=== PATIENT | female | born 1955 | race Caucasian/White ===

== ENCOUNTER 2016-09-22 09:20 | Day surgery (SDC) | payer MEDICAID ==
[2016-04-28 13:41] VITALS: BMI 27.0
[2016-09-22] MEDS ORDERED: Lactated Ringer's 500 ML IV ONE (09:40)
[2016-09-22] MEDS ORDERED: Propofol 10 mg/ml Inj (20 ML) ONE (10:31)
[2016-09-22 10:46] VITALS: RESP 15; TEMP 97
[2016-09-22 11:02] VITALS: BP 105/63; PULSE 63; O2SAT 99
== END 2016-09-22 11:07 | disposition home or self-care (01) ==
LOC: H.ENDO 09:20
PROVIDERS: ATTEND Internal Medicine Gastroenterology
DX: Z12.11 Encounter for screening for malignant neoplasm of colon (principal); K64.8 Other hemorrhoids

== ENCOUNTER 2017-01-19 09:38 | Day surgery (SDC) | payer MEDICAID ==
[2016-04-28 13:41] VITALS: BMI 27.0
[2017-01-19] MEDS ORDERED: Lactated Ringer's 1,000 ML IV ONE (10:09)
[2017-01-19] MEDS ORDERED: Lidocaine 2% MPF (5 ml) Inj ONE (10:32)
[2017-01-19] MEDS ORDERED: Propofol 10 mg/ml Inj (20 ML) ONE (10:32)
[2017-01-19 11:18] VITALS: BP 111/77; PULSE 71; RESP 21; TEMP 97.4; O2SAT 97
== END 2017-01-19 11:18 | disposition home or self-care (01) ==
LOC: H.ENDO 09:38
PROVIDERS: ATTEND Internal Medicine Gastroenterology
DX: Z12.11 Encounter for screening for malignant neoplasm of colon (principal); K64.8 Other hemorrhoids; D12.4 Benign neoplasm of descending colon; K57.30 Diverticulosis of large intestine without perforation or abscess without bleeding
CPT/HCPCS: 45380; 88305; J2704; J7120

== ENCOUNTER 2017-09-17 14:58 | Inpatient (IN) | payer MEDICAID ==
[2017-09-17 14:59] VITALS: BMI 27.0
--- NOTE | 2017-09-17 16:25 | ED PDOC ---
HPI: Abdomen Time Seen by Provider: 09/17/17 15:45 Chief Complaint (Nursing): GI Problem Chief Complaint (Provider): abdominal pain/ diarrhea History Per: Patient History/Exam Limitations: no limitations Onset/Duration Of Symptoms: Days (3) Outside of [place] travel?: No Current Symptoms Are (Timing): Constant Context: Food Severity: Moderate Pain Scale Rating Of: 8 Location Of Pain/Discomfort: Diffuse Quality Of Discomfort: Cramping Associated Symptoms: Fever, Nausea, Vomiting, Diarrhea Exacerbating Factors: Food Alleviating Factors: None Last Bowel Movement: Today Additional History Per: Patient Additional Complaint(s): A 62 yo female with PMH of HTN, arthritis present today due to abdominal pain, diarrhea and vomit for the past 3 days. state the pain is diffuse, 8 out of 10 in severity, constant, radiate to the back, that get exacerbated by food and nothing alleviates it. Pt state that she had been vomiting and having BM 3 times a day and its increasing, she denies any blood in vomit or stool. She also complain of having fever which is alleviated by Tylenol. Pt denies Headache , dizzines, Chest pain, SOB, dysuria, hematuria or polyuria. Primary care doctor Dr. Paulino PMH: HTN, arthritis Abnormal Vaginal Bleeding: No Past Medical History Reviewed: Historical Data, Nursing Documentation, Vital Signs Vital Signs: Last Vital Signs Temp 99.7 F H 09/17/17 15:24 Pulse 103 H 09/17/17 15:24 Resp 20 09/17/17 15:24 BP 130/74 09/17/17 15:24 Pulse Ox 99 09/17/17 18:26 - Medical History PMH: Arthritis, Fractures (right wrist due to fall), Gastritis, HTN, Hypercholesterolemia Denies: HIV, Chronic Kidney Disease - Surgical History Surgical History: No Surg Hx Other surgeries: shockwave lithuthriopsy - Family History Family History: States: No Known Family Hx - Living Arrangements Living Arrangements: With Family - Social History Current smoker - smoking cessation education provided: No Ex-Smoker (has not smoked in the last 12 months): No Alcohol: None - Immunization History Hx Tetanus Toxoid Vaccination: No Hx Influenza Vaccination: No Hx Pneumococcal Vaccination: No - Home Medications Home Medications: Ambulatory Orders Medication Instructions Recorded No Known Home Med 09/22/16 - Allergies Allergies/Adverse Reactions: Allergies Allergy/AdvReac Type Severity Reaction Status Date / Time No Known Allergies Allergy Verified 09/17/17 15:24 Review of Systems ROS Statement: Except As Marked, All Systems Reviewed And Found Negative Constitutional: Positive for: Fever. Negative for: Chills, Sweats, Weakness Eyes: Negative for: Pain, Vision Change Cardiovascular: Negative for: Chest Pain, Palpitations, Edema, Light Headedness Respiratory: Negative for: Cough, Shortness of Breath, SOB with Exertion Gastrointestinal: Positive for: Nausea, Vomiting, Abdominal Pain, Diarrhea Genitourinary Female: Negative for: Dysuria, Frequency, Incontinence Musculoskeletal: Negative for: Neck Pain Skin: Negative for: Rash Neurological: Negative for: Weakness, Confusion Psych: Negative for: Anxiety Physical Exam - Reviewed Nursing Documentation Reviewed: Yes Vital Signs Reviewed: No - Physical Exam Appears: Positive for: Well, Non-toxic, No Acute Distress Head Exam: Positive for: ATRAUMATIC, NORMAL INSPECTION, NORMOCEPHALIC Skin: Positive for: Normal Color, Warm, Dry Eye Exam: Positive for: Normal appearance Neck: Positive for: Normal, Painless ROM Cardiovascular/Chest: Positive for: Regular Rate, Rhythm, Chest Non Tender Respiratory: Positive for: Normal Breath Sounds. Negative for: Crackles, Rales , Rhonchi Gastrointestinal/Abdominal: Positive for: Bowel Sounds, Soft, Tenderness ( bilateral lower quadrant ). 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, Mood/Affect - Laboratory Results Result Diagrams: 09/17/17 17:25 09/17/17 17:25 - ECG O2 Sat by Pulse Oximetry: 99 Medical Decision Making Medical Decision Making: Time 16:00 Initial assessment: Pt is a 62 yo female present with abdominal pain, vomit and diarrhea Plan: Ct scan pelvis/abd BMp CBC PTT prothrombin time Lipase EKG Urinalysis urine dipstick Morphine 2mg IV fluid Odansetron 4mg Po F/u lab and proceed Time 18:[address] in CT scan Lab:WBC: 19.3, neut % 91 lymph 7.1 neut 16.3 Pt 17.2 INR 1.5 K: 3.4 glucose 140 Plan Potassium chloride 20meq time 19:00 Pt seen and re-examined, pt laying down comfortable. Ct: patchy inhomogeneous enhancment of he left kidney with perinephric stranding enhancement left urothelium findings are compatible with ascending urinary tract infection with pyelonephritis blood gas PO2: 26L, VBG PH: 7.42, VBG total CO2 30.6 VBG Base excess 4.0 VBG K : 3.4, Glucose: 120 Plan Urine culture blood culture Initiate ceftriaxone call family support worker, admit to floor. Disposition - Disposition Forms: [employer] (Yoruba)
[2017-09-17] MEDS ORDERED: Sodium Chloride 0.9% 1,000 ML IV STA (17:04)
[2017-09-17 17:28] LABS: BASO # 0.1 K/uL (0.0-0.2); BASO % 0.5 % (0.0-2.0); EOS % 0.1 % (0.0-4.0); HEMOGLOBIN 13.6 g/dL (12.0-16.0); LYMPH # 1.4 K/uL (1.0-4.3); LYMPH % 7.1 % (20.0-40.0); MEAN CELL VOLUME 86.3 fl (81.0-99.0); MEAN CORPUSCULAR HGB CONC 34.8 g/dL (33.0-37.0); MEAN PLATELET VOLUME 9.4 fl (7.2-11.7); MONO # 1.5 K/uL (0.0-0.8); NEUT # 16.3 K/uL (1.8-7.0); NEUT % 84.3 % (50.0-75.0); PLATELET COUNT 133 K/uL (130-400); RBC 4.54 Mil/uL (3.80-5.20); RED CELL DISTRIBUTION WIDTH 13.2 % (11.5-14.5); WHITE BLOOD COUNT 19.3 K/uL (4.8-10.8)
[2017-09-17 17:38] LABS: INR 1.5 (0.9-1.2); PARTIAL THROMBOPLASTIN TIME 29.5 Seconds (25.6-37.1); PROTHROMBIN TIME 17.2 Seconds (9.8-13.1)
[2017-09-17 17:46] LABS: ALB/GLOB RATIO 1.3 (1.0-2.1); ALBUMIN 4.1 g/dL (3.5-5.0); ALT/SGPT 27 U/L (9-52); AST/SGOT 29 U/L (14-36); BLOOD UREA NITROGEN 17 mg/dl (7-17); CALCIUM 8.7 mg/dL (8.4-10.2); GFR AFRICAN-AMERICAN > 60; GFR NON-AFRICAN AMERICAN > 60; LIPASE 99 U/L (23-300)
[2017-09-17] MEDS ORDERED: Sodium Chloride 0.9% 50 ML IV ONE (18:04)
[2017-09-17] MEDS ORDERED: Iohexol 300 100 ML IJ ONE (18:04)
[2017-09-17 18:18] LABS: LYMPHOCYTE 5 % (20-50); MONOCYTE 4 % (0-10); NEUTROPHIL 91 % (42-75); TOTAL CELLS COUNTED 100
[2017-09-17] MEDS ORDERED: Potassium Chloride 20 mEq ER Tab PO STA (18:18)
[2017-09-17 18:19] LABS: PLATELET ESTIMATE NORMAL (NORMAL)
[2017-09-17 18:20] LABS: ANISOCYTOSIS SLIGHT; OVALOCYTES SLIGHT; POIKILOCYTOSIS SLIGHT
[2017-09-17 18:27] LABS: URINE BACTERIA MANY (<OCC); URINE BILIRUBIN NEGATIVE (NEGATIVE); URINE CLARITY TURBID (Clear); URINE COLOR AMBER (YELLOW); URINE GLUCOSE (UA) NEG (Normal); URINE LEUKOCYTE ESTERASE LARGE Leu/uL (Negative); URINE PROTEIN 100 mg/dL (NEGATIVE); URINE UROBILINOGEN 0.2-1.0 mg/dL (0.2-1.0); WBC CLUMPS MOD /hpf
[2017-09-17 18:30] LABS: URINE BLOOD SMALL (NEGATIVE)
--- NOTE | 2017-09-17 18:36 | CT ---
PROCEDURE: CT Abdomen and Pelvis with contrast HISTORY: BLQ pain, v/d COMPARISON: None. TECHNIQUE: Contrast dose: 95 mL Omnipaque 300 Radiation dose: Total exam DLP = 420.7 mGy-cm. This CT exam was performed using one or more of the following dose reduction techniques: Automated exposure control, adjustment of the mA and/or kV according to patient size, and/or use of iterative reconstruction technique. FINDINGS: LOWER THORAX: Unremarkable. LIVER: Hepatic steatosis. No gross lesion or ductal dilatation. GALLBLADDER AND BILE DUCTS: Prior cholecystectomy with surgical clips. PANCREAS: Unremarkable. No gross lesion or ductal dilatation. SPLEEN: Unremarkable. ADRENALS: Unremarkable. No mass. KIDNEYS AND URETERS: Patchy inhomogeneous enhancement of the left kidney with perinephric stranding. Enhancement of the left urothelium. Multiple bilateral renal cysts. No hydronephrosis. No solid mass. VASCULATURE: Unremarkable. No aortic aneurysm. BOWEL: Colonic diverticulosis. No obstruction. No gross mural thickening. APPENDIX: No findings to suggest acute appendicitis. PERITONEUM: Unremarkable. No free fluid. No free air. LYMPH NODES: Unremarkable. No enlarged lymph nodes. BLADDER: Unremarkable. REPRODUCTIVE: 2.4 x 1.8 cm fibroid probably in a submucosal location. BONES: No acute fracture. Degenerative changes. OTHER FINDINGS: None. IMPRESSION: Patchy inhomogeneous enhancement of the left kidney with perinephric stranding enhancement left urothelium findings are compatible with ascending urinary tract infection with pyelonephritis. Additional findings as above.
[2017-09-17 19:36] LABS: VENOUS BLOOD GAS PCO2 45 mmHg (40-60); VENOUS BLOOD GAS PO2 26 mm/Hg (30-55); VENOUS BLOOD PH 7.42 (7.32-7.43)
[2017-09-17] MEDS ORDERED: cefTRIAXone (Rocephin) 1 gm Inj ONE (19:57)
[2017-09-17] MEDS ORDERED: Potassium Chloride 20 mEq ER Tab PO ONE (19:57)
--- NOTE | 2017-09-17 20:31 | CP.PCM.HP ---
History of Present Illness - History of Present Illness History of Present Illness: 62 y/o F with PMHx ofrecent diagnosed HTN presents to ED complaining of lower abdominal pain for 3 days. Patient states that the abdominal pain radiates to her left flank, constant, aching, partially and mild alleviated with tylenol OTC. Also reports subjective fevers, nausea, had one non bloody no bilious vomit yesterday and one today, burning with urination, and 3-4 episodes of non bloody diarrheas since yesterday. First time she has all this symptoms. Denies h /o kidney stones. Also reports a long h/o intermittent acid reflux sensation, sometimes associated with cough at bedtime. Denies chest pain, SOB, dizziness, hematuria, blood in stools. PMD: Dr. Huizar at [facility] PMH: HTN allergies: NKDA Surgical Hx: 1 , 1 inguinal hernia, Cholelithiatis removal via laser Social Hx: Never smoker, social etoh, denies illicit drugs Next of KIn: Nanda Sexton: [phone] Full code ED course: -low grade fever, tachy -PE: alert, awake, oriented x 3, non toxic appearance CV: RRR, normal S1, S2 resp: CTA b/l abd: present BS, soft, mild tender to palpation of lower abdomen, no rebound, no guarding or rigidity back: Left CVA tenderness, right CVA non tender ext: no edema labs and abd CT results reviewed Tx in ER: Morphine 2 mg IV once, zofran 4 mg ODT once, POtassium 20 meq once, ceftriaxone 1 gm Iv, 1L of NS @ 250/hr Present on Admission - Present on Admission Any Indicators Present on Admission: No History of DVT/PE: No History of Uncontrolled Diabetes: No Urinary Catheter: No Decubitus Ulcer Present: No Review of Systems - Review of Systems All systems: reviewed and no additional remarkable complaints except (as per HPI ) Past Patient History - Past Medical History & Family History Past Medical History?: No - Past Social History Alcohol: None - CARDIAC Hx Hypercholesterolemia: Yes Hx Hypertension: Yes - PULMONARY Hx Respiratory Disorders: No - NEUROLOGICAL Hx Neurological Disorder: No Other/Comment: headaches - HEENT Hx HEENT Problems: Yes Hx Cataracts: Yes - RENAL Hx Chronic Kidney Disease: No - ENDOCRINE/METABOLIC Hx Endocrine Disorders: No - HEMATOLOGICAL/ONCOLOGICAL Hx Human Immunodeficiency Virus (HIV): No - INTEGUMENTARY Hx Dermatological Problems: No Other/Comment: red birthmark on right chin - MUSCULOSKELETAL/RHEUMATOLOGICAL Hx Arthritis: Yes Hx Fractures: Yes (right wrist due to fall) - GASTROINTESTINAL Hx Gastritis: Yes - GENITOURINARY/GYNECOLOGICAL Hx Genitourinary Disorders: No - PSYCHIATRIC Hx Psychophysiologic Disorder: No Hx Substance Use: No - SURGICAL HISTORY Hx Cholecystectomy: Yes - ANESTHESIA Hx Anesthesia: Yes Hx Anesthesia Reactions: No Hx Malignant Hyperthermia: No Meds Allergies/Adverse Reactions: Allergies Allergy/AdvReac Type Severity Reaction Status Date / Time No Known Allergies Allergy Verified 09/17/17 15:24 Physical Exam - Constitutional Appears: Non-toxic, No Acute Distress - Head Exam Head Exam: ATRAUMATIC, NORMOCEPHALIC - Eye Exam Eye Exam: Normal appearance, PERRL. absent: Conjunctival injection - ENT Exam ENT Exam: Mucous Membranes Dry - Respiratory Exam Respiratory Exam: Clear to Auscultation Bilateral, NORMAL BREATHING PATTERN. absent: Accessory Muscle Use, Chest Wall Tenderness, Decreased Breath Sounds, Rales, Rhonchi, Wheezes, Respiratory Distress, Stridor - Cardiovascular Exam Cardiovascular Exam: Tachycardia, REGULAR RHYTHM, +S1, +S2 - GI/Abdominal Exam GI & Abdominal Exam: Normal Bowel Sounds, Soft, Tenderness (deep palpation of lower abdomen). absent: Distended, Guarding, Rebound - Extremities Exam Extremities exam: Positive for: normal inspection. Negative for: calf tenderness, pedal edema - Back Exam Back exam: CVA tenderness (L), NORMAL INSPECTION. absent: CVA tenderness (R) - Neurological Exam Neurological exam: Alert, Oriented x3 - Psychiatric Exam Psychiatric exam: Normal Affect, Normal Mood - Skin Skin Exam: Dry, Intact, Normal Color Results - Vital Signs Recent Vital Signs: Last Vital Signs Temp 99.7 F H 09/17/17 15:24 Pulse 103 H 09/17/17 15:24 Resp 20 09/17/17 15:24 BP 130/74 09/17/17 15:24 Pulse Ox 99 09/17/17 19:57 - Labs Result Diagrams: 09/17/17 17:25 09/17/17 17:25 Labs: Laboratory Results - last 24 hr 09/17/17 09/17/17 09/17/17 17:25 17:25 17:25 WBC 19.3 H D RBC 4.54 Hgb 13.6 Hct 39.2 MCV 86.3 MCH 30.0 MCHC 34.8 RDW 13.2 Plt Count 133 MPV 9.4 Neut % (Auto) 84.3 H Lymph % (Auto) 7.1 L Edmunds % (Auto) 8.0 Eos % (Auto) 0.1 Baso % (Auto) 0.5 Neut # (Auto) 16.3 H Lymph # (Auto) 1.4 Edmunds # (Auto) 1.5 H Eos # (Auto) 0.0 Baso # (Auto) 0.1 Neutrophils % (Manual) 91 H Lymphocytes % (Manual) 5 L Monocytes % (Manual) 4 Platelet Estimate Normal Poikilocytosis (manual Slight Anisocytosis (manual) Slight Ovalocytes Slight PT 17.2 H INR 1.5 H APTT 29.5 pO2 VBG pH VBG pCO2 VBG HCO3 VBG Total CO2 VBG O2 Sat (Calc) VBG Base Excess VBG Potassium Glucose Lactate FiO2 Sodium 138 Potassium 3.4 L Chloride 103 Carbon Dioxide 23 Anion Gap 15 BUN 17 Creatinine 0.8 Est GFR ( Amer) > 60 Est GFR (Non-Af Amer) > 60 Random Glucose 140 H Calcium 8.7 Total Bilirubin 1.0 AST 29 ALT 27 Alkaline Phosphatase 70 Total Protein 7.3 Albumin 4.1 Globulin 3.1 Albumin/Globulin Ratio 1.3 Lipase 99 Venous Blood Potassium Urine Color Urine Clarity Urine pH Ur Specific [place] Urine Protein Urine Glucose (UA) Urine Ketones Urine Blood Urine Nitrate Urine Bilirubin Urine Urobilinogen Ur Leukocyte Esterase Urine RBC (Auto) Urine WBC Clumps (Auto) Urine Microscopic WBC Urine Bacteria 09/17/17 09/17/17 17:53 19:30 WBC RBC Hgb Hct MCV MCH MCHC RDW Plt Count MPV Neut % (Auto) Lymph % (Auto) Edmunds % (Auto) Eos % (Auto) Baso % (Auto) Neut # (Auto) Lymph # (Auto) Edmunds # (Auto) Eos # (Auto) Baso # (Auto) Neutrophils % (Manual) Lymphocytes % (Manual) Monocytes % (Manual) Platelet Estimate Poikilocytosis (manual Anisocytosis (manual) Ovalocytes PT INR APTT pO2 26 L VBG pH 7.42 VBG pCO2 45 VBG HCO3 26.7 VBG Total CO2 30.6 H VBG O2 Sat (Calc) 55.3 VBG Base Excess 4.0 H VBG Potassium 3.4 L Glucose 120 H Lactate 1.0 FiO2 21.0 Sodium 135.0 Potassium Chloride 104.0 Carbon Dioxide Anion Gap BUN Creatinine Est GFR ( Amer) Est GFR (Non-Af Amer) Random Glucose Calcium Total Bilirubin AST ALT Alkaline Phosphatase Total Protein Albumin Globulin Albumin/Globulin Ratio Lipase Venous Blood Potassium 3.4 L Urine Color Juliet Urine Clarity Turbid Urine pH 6.0 Ur Specific [place] 1.014 Urine Protein 100 Urine Glucose (UA) Neg Urine Ketones Negative Urine Blood Small Urine Nitrate Negative Urine Bilirubin Negative Urine Urobilinogen 0.2-1.0 Ur Leukocyte Esterase Large Urine RBC (Auto) 12 H Urine WBC Clumps (Auto) Mod H Urine Microscopic WBC 1339 H Urine Bacteria Many H Assessment & Plan - Assessment and Plan (Free Text) Assessment: 62 y/o F with h/o HTN being admitted for acute Left side Pyelonephritis associated with SIRS. Plan: Acute Left Pyelonephritis -MedSurg -C/W IV fluids maintenance -c/w empiric Ceftriaxone 1 GM IV daily -pain control with Toradol PRN based on severity -fever control with Acetaminophen 650 mg PO PRN -leukocytosis 19.3 on admission -UA positive for blood, elevated WBC, large leukocyte esterase -f/u urine Cx -s/p IV fluids in ER -s/p one dose of ceftriaxone 1 gm in ER -s/p morphine for pain control in ER SIRS -most likely associated with acute Pyelo -febrile and tachy on admission -leukocytosis 19.3 -f/u blood Cx -c/w empiric antibiotic -IV fluids -normal lactate on admission -normal coag panel Acid Reflux -most likely 2/2 GERD -start famotidine 20 mg PO -recommended lifestyles modifications HTN -c/w home Hctz 12.5 mg PO -heart healthy diet DVT prophylaxis -SCDs Lovenox 40 mg SC - Date & Time Date: 09/17/17 Time: 20:30
[2017-09-17] MEDS: Lactated Ringer's 1,000 ML IV SCH (22:01)
[2017-09-18] MEDS: Lactated Ringer's 1,000 ML IV SCH ×2 (04:00→16:01)
[2017-09-18 06:48] LABS: BASO # 0.1 K/uL (0.0-0.2); BASO % 0.3 % (0.0-2.0); HEMOGLOBIN 11.9 g/dL (12.0-16.0); LYMPH # 1.2 K/uL (1.0-4.3); LYMPH % 4.9 % (20.0-40.0); MEAN CELL VOLUME 87.1 fl (81.0-99.0); MEAN CORPUSCULAR HEMOGLOBIN 30.4 pg (27.0-31.0); MEAN CORPUSCULAR HGB CONC 34.9 g/dL (33.0-37.0); MEAN PLATELET VOLUME 10.1 fl (7.2-11.7); MONO # 1.4 K/uL (0.0-0.8); MONO % 5.8 % (0.0-10.0); RBC 3.91 Mil/uL (3.80-5.20); RED CELL DISTRIBUTION WIDTH 13.6 % (11.5-14.5)
[2017-09-18 06:55] LABS: BLOOD UREA NITROGEN 17 mg/dl (7-17); CALCIUM 7.9 mg/dL (8.4-10.2); GFR AFRICAN-AMERICAN > 60; GFR NON-AFRICAN AMERICAN 50
[2017-09-18 07:02] LABS: WHITE BLOOD COUNT 23.6 K/uL (4.8-10.8)
[2017-09-18] MEDS: Enoxaparin 40 mg Syringe SC SCH (08:38)
--- NOTE | 2017-09-18 15:02 | CP.PCM.PN ---
Subjective - Date & Time of Evaluation Date of Evaluation: 09/18/17 Time of Evaluation: 15:00 - Subjective Subjective: 62 y/o female w/ pmh of newly diagnosed HTN who was admitted for UTI complicated with pylonephritis. She states that her pain is improved but complains of constipation. Denies nausea, vomiting, difficulty/pain w/ urination. Objective - Vital Signs/Intake and Output Vital Signs (last 24 hours): Temp Pulse Resp BP Pulse Ox 97.4 F L 64 18 103/66 97 09/18/17 08:09 09/18/17 08:09 09/18/17 08:09 09/18/17 08:09 09/18/17 08:09 - Medications Medications: Current Medications Acetaminophen (Tylenol 325mg Tab) 650 mg PO Q6 PRN PRN Reason: Fever >100.4 F Last Admin: 09/17/17 20:46 Dose: 650 mg Enoxaparin Sodium (Lovenox) 40 mg SC DAILY [facility] PRN Reason: Protocol Last Admin: 09/18/17 08:38 Dose: 40 mg Famotidine (Pepcid) 20 mg PO DAILY [facility] Last Admin: 09/18/17 08:39 Dose: 20 mg Hydrochlorothiazide (Microzide) 12.5 mg PO DAILY [facility] Last Admin: 09/18/17 08:39 Dose: 12.5 mg Ceftriaxone Sodium 1 gm/ (Sodium Chloride) 100 mls @ 100 mls/hr IVPB DAILY [facility] PRN Reason: Protocol Last Admin: 09/18/17 08:38 Dose: 100 mls/hr Lactated Ringer's (Lactated Ringer's) 1,000 mls @ 100 mls/hr IV .Q10H [facility] Ketorolac Tromethamine (Toradol) 15 mg IVP Q6 PRN PRN Reason: Pain, moderate (4-7) Ketorolac Tromethamine (Toradol) 30 mg IVP Q6 PRN PRN Reason: Pain, severe (8-10) Ondansetron HCl (Zofran Odt) 4 mg PO Q8H PRN PRN Reason: Nausea/Vomiting Last Admin: 09/17/17 22:00 Dose: 4 mg Sennosides (Senokot Tab) 17.2 mg PO [facility] Stop: 09/20/17 23:59 - Labs Labs: 09/18/17 06:07 09/18/17 06:07 PT 17.2 Seconds (9.8-13.1) H 09/17/17 17:25 INR 1.5 (0.9-1.2) H 09/17/17 17:25 APTT 29.5 Seconds (25.6-37.1) 09/17/17 17:25 - Constitutional Appears: Well, No Acute Distress - ENT Exam ENT Exam: Mucous Membranes Moist - Respiratory Exam Respiratory Exam: Clear to Ausculation Bilateral, NORMAL BREATHING PATTERN - Cardiovascular Exam Cardiovascular Exam: REGULAR RHYTHM, +S1, +S2 - GI/Abdominal Exam GI & Abdominal Exam: Soft, Normal Bowel Sounds. absent: Tenderness - Extremities Exam Extremities Exam: Normal Inspection. absent: Pedal Edema - Neurological Exam Neurological Exam: Alert, Awake, Oriented x3 - Skin Skin Exam: Dry, Intact, Warm Assessment and Plan - Assessment and Plan (Free Text) Assessment: 62 y/o f w/ hx of HTN admitted for acute Left side Pyelonephritis associated with SIRS. Plan: 1. Acute Left Pyelonephritis -Urine culture positive for gram neg. rods -CT of abdomen: patchy inhomogenous enhancement of left kidney w/ perinephric stranding, multiple bilateral cysts. no hydronephrosis. -C/W IV fluids maintenance -c/w empiric Ceftriaxone 1 GM IV daily -pain control with Toradol PRN based on severity -fever control with Acetaminophen 650 mg PO PRN -leukocytosis 19.3 on admission, 23.6 today -UA positive for blood, elevated WBC, large leukocyte esterase 2. SIRS -most likely associated with acute Pyelo -febrile and tachy on admission, temp 97.4 today -leukocytosis WBCs 23.6 -f/u blood Cx pending -c/w empiric antibiotic -IV fluids -normal lactate on admission -normal coag panel 3. Hypokalemia -K+ is 3.4 -on Lactate ringers 4. Acid Reflux -most likely 2/2 GERD -start famotidine 20 mg PO -recommended lifestyles modifications 5. Constipation -likely 2/2 poor dietary intake -ordered Senokot 6. HTN -c/w home Hctz 12.5 mg PO -heart healthy diet 7.DVT prophylaxis -SCDs Lovenox 40 mg SC
[2017-09-19] MEDS: Lactated Ringer's 1,000 ML IV SCH ×4 (00:10→20:51)
[2017-09-19 07:49] LABS: HEMOGLOBIN 11.5 g/dL (12.0-16.0); MEAN CELL VOLUME 87.5 fl (81.0-99.0); MEAN CORPUSCULAR HEMOGLOBIN 30.1 pg (27.0-31.0); MEAN CORPUSCULAR HGB CONC 34.4 g/dL (33.0-37.0); RBC 3.82 Mil/uL (3.80-5.20); RED CELL DISTRIBUTION WIDTH 13.8 % (11.5-14.5); WHITE BLOOD COUNT 13.4 K/uL (4.8-10.8)
[2017-09-19 08:15] LABS: ALBUMIN 3.1 g/dL (3.5-5.0); ALT/SGPT 36 U/L (9-52); AST/SGOT 34 U/L (14-36); BLOOD UREA NITROGEN 10 mg/dl (7-17); CALCIUM 8.3 mg/dL (8.4-10.2); GFR AFRICAN-AMERICAN > 60; GFR NON-AFRICAN AMERICAN > 60
[2017-09-19] MEDS: Enoxaparin 40 mg Syringe SC SCH (09:01)
--- NOTE | 2017-09-19 09:15 | CP.PCM.PN ---
Subjective - Date & Time of Evaluation Date of Evaluation: 09/19/17 Time of Evaluation: 09:15 - Subjective Subjective: pt seen and examined at bedside. No acute events overnight. Reports feeling chill with nausea. OOB/ambulating without issue. No vomiting. Pain improved. No other complaints. Objective - Vital Signs/Intake and Output Vital Signs (last 24 hours): Temp Pulse Resp BP Pulse Ox 97.4 F L 65 20 106/68 97 09/19/17 08:04 09/19/17 08:04 09/19/17 08:04 09/19/17 08:04 09/19/17 08:04 - Medications Medications: Current Medications Acetaminophen (Tylenol 325mg Tab) 650 mg PO Q6 PRN PRN Reason: Fever >100.4 F Last Admin: 09/18/17 22:12 Dose: 650 mg Enoxaparin Sodium (Lovenox) 40 mg SC DAILY [facility] PRN Reason: Protocol Last Admin: 09/19/17 09:01 Dose: 40 mg Famotidine (Pepcid) 20 mg PO DAILY [facility] Last Admin: 09/19/17 09:01 Dose: 20 mg Hydrochlorothiazide (Microzide) 12.5 mg PO DAILY [facility] Last Admin: 09/19/17 09:02 Dose: 12.5 mg Ceftriaxone Sodium 1 gm/ (Sodium Chloride) 100 mls @ 100 mls/hr IVPB DAILY [facility] PRN Reason: Protocol Last Admin: 09/19/17 09:03 Dose: 100 mls/hr Lactated Ringer's (Lactated Ringer's) 1,000 mls @ 100 mls/hr IV .Q10H [facility] Last Admin: 09/19/17 02:30 Dose: 100 mls/hr Ketorolac Tromethamine (Toradol) 15 mg IVP Q6 PRN PRN Reason: Pain, moderate (4-7) Ketorolac Tromethamine (Toradol) 30 mg IVP Q6 PRN PRN Reason: Pain, severe (8-10) Ondansetron HCl (Zofran Odt) 4 mg PO Q8H PRN PRN Reason: Nausea/Vomiting Last Admin: 09/17/17 22:00 Dose: 4 mg Sennosides (Senokot Tab) 17.2 mg PO [facility] Stop: 09/20/17 23:59 Last Admin: 09/18/17 22:06 Dose: Not Given - Labs Labs: 09/19/17 05:30 09/19/17 05:30 PT 17.2 Seconds (9.8-13.1) H 09/17/17 17:25 INR 1.5 (0.9-1.2) H 09/17/17 17:25 APTT 29.5 Seconds (25.6-37.1) 09/17/17 17:25 - Constitutional Appears: Non-toxic, No Acute Distress - Head Exam Head Exam: ATRAUMATIC, NORMOCEPHALIC - Eye Exam Eye Exam: EOMI Pupil Exam: PERRL - ENT Exam ENT Exam: Mucous Membranes Moist - Neck Exam Neck Exam: Full ROM - Respiratory Exam Respiratory Exam: Clear to Ausculation Bilateral, NORMAL BREATHING PATTERN. absent: Rales, Rhonchi, Wheezes - Cardiovascular Exam Cardiovascular Exam: REGULAR RHYTHM, RRR, +S1, +S2. absent: JVD, Rubs - GI/Abdominal Exam GI & Abdominal Exam: Soft, Normal Bowel Sounds. absent: Tenderness - Extremities Exam Extremities Exam: Normal Inspection. absent: Pedal Edema - Back Exam Back Exam: absent: CVA tenderness (L), CVA tenderness (R) - Neurological Exam Neurological Exam: Alert, Awake, Oriented x3 Assessment and Plan - Assessment and Plan (Free Text) Assessment: 62 y/o female with PMHx of new diagnosed HTN admitted for acute Left side Pyelonephritis. Plan: 1) Acute Left Pyelonephritis -Urine culture positive for gram neg. rods -blood culture positive: gram neg rods -CT of abdomen: patchy inhomogenous enhancement of left kidney w/ perinephric stranding, multiple bilateral cysts. no hydronephrosis. -C/W IV fluids maintenance -s/p Rocephin, switched to Meropenem as per ID -pain control with Toradol PRN based on severity -fever control with Acetaminophen 650 mg PO PRN -UA positive for blood, elevated WBC, large leukocyte esterase 2) Bactermia 2/2 to Pyelonephritis -most likely associated with acute Pyelo -leukocytosis: 13.4 today -f/u blood Cx pending -c/w empiric antibiotic -IV fluids -normal lactate on admission -normal coag panel 3) Hypokalemia -K+ is 3.0 -LR fluid hydration -KCL 40mEq PO, K-runs x2 -follow up AM labs 4) GERD -stable -start famotidine 20 mg PO -recommended lifestyles modifications 5) Constipation -likely 2/2 poor dietary intake -ordered Senokot 6) HTN -c/w home Hctz 12.5 mg PO -heart healthy diet 7) DVT prophylaxis -SCDs -Lovenox 40 mg SC 8) Code Status -full code
[2017-09-19] MEDS ORDERED: Potassium Chloride 20 mEq/15 ml LIQ UD PO ONE (10:42)
--- NOTE | 2017-09-19 10:51 | CP.PCM.CON ---
History of Present Illness - History of Present Illness History of Present Illness: Infectious Disease Consultation Note- asked to see this patient for bacteremia and UTI. HPI- Patient is a 62 year old female with OMH of HTN who states she came to ED with c /o fever and nause and vomiting along with lower abdominal discomfort with radiation to left flank for 2 days and she decided to come to ED for further evaluation and treatment. She also states she had dysurea for 1 day . she states she feels better since admission and her dysurea and flank pain have resolved. she state she still has slight nausea but much less than before. She denies any h/o UTI in the past. pt. has been found to have e.coli UTI and bacteremia long with pyelonephritis . pt. states her symptoms are improving. PMD: Dr. Huizar at [facility] PMH: HTN allergies: NKDA Surgical Hx: 1 , 1 inguinal hernia, Cholelithiatis removal via laser Social Hx: Never smoker, social etoh, denies illicit drugs Review of Systems - Review of Systems Review of Systems: ROS- had fever and chills but not now, had nausea and vomiting, now only mild nausea , denies any cough or sob, denies any chest pain, had lower abd pain and flank pian but that has resolved, had dysurea but states has resolved, denies any diarrhea Past Patient History - Past Medical History & Family History Past Medical History?: Yes - Past Social History Smoking Status: Never Smoked Alcohol: None Drugs: Denies Home Situation {Lives}: With Family - CARDIAC Hx Cardiac Disorders: Yes Hx Hypercholesterolemia: Yes Hx Hypertension: Yes - PULMONARY Hx Respiratory Disorders: No - NEUROLOGICAL Hx Neurological Disorder: Yes Other/Comment: headaches - HEENT Hx HEENT Problems: Yes Hx Cataracts: Yes - RENAL Hx Chronic Kidney Disease: No - ENDOCRINE/METABOLIC Hx Endocrine Disorders: No - HEMATOLOGICAL/ONCOLOGICAL Hx Blood Disorders: No - INTEGUMENTARY Hx Dermatological Problems: Yes Other/Comment: red birthmark on right chin - MUSCULOSKELETAL/RHEUMATOLOGICAL Hx Musculoskeletal Disorders: Yes Hx Arthritis: Yes Hx Falls: Yes Hx Fractures: Yes (right wrist due to fall) - GASTROINTESTINAL Hx Gastrointestinal Disorders: Yes Hx Gastritis: Yes - GENITOURINARY/GYNECOLOGICAL Hx Genitourinary Disorders: No - PSYCHIATRIC Hx Psychophysiologic Disorder: No Hx Substance Use: No - SURGICAL HISTORY Hx Surgeries: Yes Hx Cholecystectomy: Yes - ANESTHESIA Hx Anesthesia: Yes Hx Anesthesia Reactions: No Hx Malignant Hyperthermia: No Has any member of the family had a problem w/ anesthesia?: No Meds Allergies/Adverse Reactions: Allergies Allergy/AdvReac Type Severity Reaction Status Date / Time No Known Allergies Allergy Verified 09/17/17 15:24 - Medications Medications: Current Medications Acetaminophen (Tylenol 325mg Tab) 650 mg PO Q6 PRN PRN Reason: Fever >100.4 F Last Admin: 09/19/17 09:47 Dose: 650 mg Enoxaparin Sodium (Lovenox) 40 mg SC DAILY [facility] PRN Reason: Protocol Last Admin: 09/19/17 09:01 Dose: 40 mg Famotidine (Pepcid) 20 mg PO DAILY [facility] Last Admin: 09/19/17 09:01 Dose: 20 mg Hydrochlorothiazide (Microzide) 12.5 mg PO DAILY [facility] Last Admin: 09/19/17 09:02 Dose: 12.5 mg Ceftriaxone Sodium 1 gm/ (Sodium Chloride) 100 mls @ 100 mls/hr IVPB DAILY [facility] PRN Reason: Protocol Last Admin: 09/19/17 09:03 Dose: 100 mls/hr Lactated Ringer's (Lactated Ringer's) 1,000 mls @ 100 mls/hr IV .Q10H [facility] Last Admin: 09/19/17 02:30 Dose: 100 mls/hr Potassium Chloride (Potassium Chloride 10 Meq/100 Ml) 100 mls @ 100 mls/hr IVPB Q1 [facility] Stop: 09/19/17 12:59 Ketorolac Tromethamine (Toradol) 15 mg IVP Q6 PRN PRN Reason: Pain, moderate (4-7) Ketorolac Tromethamine (Toradol) 30 mg IVP Q6 PRN PRN Reason: Pain, severe (8-10) Ondansetron HCl (Zofran Odt) 4 mg PO Q8H PRN PRN Reason: Nausea/Vomiting Last Admin: 09/17/17 22:00 Dose: 4 mg Sennosides (Senokot Tab) 17.2 mg PO HS [facility] Stop: 09/20/17 23:59 Last Admin: 09/18/17 22:06 Dose: Not Given Physical Exam - Constitutional Appears: No Acute Distress - Head Exam Head Exam: ATRAUMATIC - Eye Exam Eye Exam: EOMI - ENT Exam ENT Exam: Normal Oropharynx - Neck Exam Neck exam: Positive for: Full Rom - Respiratory Exam Respiratory Exam: Clear to Auscultation Bilateral, NORMAL BREATHING PATTERN - Cardiovascular Exam Cardiovascular Exam: RRR, +S1, +S2 - GI/Abdominal Exam GI & Abdominal Exam: Normal Bowel Sounds, Soft Additional comments: NT, ND No CVA tenderness b/l - Extremities Exam Extremities exam: Positive for: normal inspection - Neurological Exam Neurological exam: Alert, Oriented x3 Results - Vital Signs Recent Vital Signs: Last Vital Signs Temp 97.4 F L 09/19/17 08:04 Pulse 65 09/19/17 08:04 Resp 20 09/19/17 08:04 BP 106/68 09/19/17 08:04 Pulse Ox 97 09/19/17 08:04 - Labs Result Diagrams: 09/20/17 05:20 09/20/17 05:20 Labs: Laboratory Results - last 24 hr 09/19/17 09/19/17 05:30 05:30 WBC 13.4 H RBC 3.82 Hgb 11.5 L Hct 33.4 L MCV 87.5 MCH 30.1 MCHC 34.4 RDW 13.8 Plt Count 116 L Sodium 137 Potassium 3.0 L Chloride 99 Carbon Dioxide 30 Anion Gap 11 BUN 10 Creatinine 0.8 Est GFR ( Amer) > 60 Est GFR (Non-Af Amer) > 60 Random Glucose 99 Calcium 8.3 L Total Bilirubin 0.6 AST 34 ALT 36 Alkaline Phosphatase 70 Total Protein 6.0 L Albumin 3.1 L D Globulin 2.9 Albumin/Globulin Ratio 1.0 Laboratory Results - last 72 hr 09/17/17 09/17/17 09/17/17 17:25 17:25 17:25 WBC 19.3 H D RBC 4.54 Hgb 13.6 Hct 39.2 MCV 86.3 MCH 30.0 MCHC 34.8 RDW 13.2 Plt Count 133 MPV 9.4 Neut % (Auto) 84.3 H Lymph % (Auto) 7.1 L Whitman % (Auto) 8.0 Eos % (Auto) 0.1 Baso % (Auto) 0.5 Neut # (Auto) 16.3 H Lymph # (Auto) 1.4 Whitman # (Auto) 1.5 H Eos # (Auto) 0.0 Baso # (Auto) 0.1 Neutrophils % (Manual) 91 H Lymphocytes % (Manual) 5 L Monocytes % (Manual) 4 Platelet Estimate Normal Poikilocytosis (manual Slight Anisocytosis (manual) Slight Ovalocytes Slight PT 17.2 H INR 1.5 H APTT 29.5 pO2 VBG pH VBG pCO2 VBG HCO3 VBG Total CO2 VBG O2 Sat (Calc) VBG Base Excess VBG Potassium Glucose Lactate FiO2 Sodium 138 Potassium 3.4 L Chloride 103 Carbon Dioxide 23 Anion Gap 15 BUN 17 Creatinine 0.8 Est GFR ( Amer) > 60 Est GFR (Non-Af Amer) > 60 Random Glucose 140 H Calcium 8.7 Total Bilirubin 1.0 AST 29 ALT 27 Alkaline Phosphatase 70 Total Protein 7.3 Albumin 4.1 Globulin 3.1 Albumin/Globulin Ratio 1.3 Lipase 99 Venous Blood Potassium Urine Color Urine Clarity Urine pH Ur Specific [place] Urine Protein Urine Glucose (UA) Urine Ketones Urine Blood Urine Nitrate Urine Bilirubin Urine Urobilinogen Ur Leukocyte Esterase Urine RBC (Auto) Urine WBC Clumps (Auto) Urine Microscopic WBC Urine Bacteria 09/17/17 09/17/17 09/18/17 17:53 19:30 06:07 WBC 23.6 H RBC 3.91 Hgb 11.9 L Hct 34.0 MCV 87.1 MCH 30.4 MCHC 34.9 RDW 13.6 Plt Count 99 L D MPV 10.1 Neut % (Auto) 89.0 H Lymph % (Auto) 4.9 L Whitman % (Auto) 5.8 Eos % (Auto) 0.0 Baso % (Auto) 0.3 Neut # (Auto) 21.0 H Lymph # (Auto) 1.2 Whitman # (Auto) 1.4 H Eos # (Auto) 0.0 Baso # (Auto) 0.1 Neutrophils % (Manual) Lymphocytes % (Manual) Monocytes % (Manual) Platelet Estimate Poikilocytosis (manual Anisocytosis (manual) Ovalocytes PT INR APTT pO2 26 L VBG pH 7.42 VBG pCO2 45 VBG HCO3 26.7 VBG Total CO2 30.6 H VBG O2 Sat (Calc) 55.3 VBG Base Excess 4.0 H VBG Potassium 3.4 L Glucose 120 H Lactate 1.0 FiO2 21.0 Sodium 135.0 Potassium Chloride 104.0 Carbon Dioxide Anion Gap BUN Creatinine Est GFR ( Amer) Est GFR (Non-Af Amer) Random Glucose Calcium Total Bilirubin AST ALT Alkaline Phosphatase Total Protein Albumin Globulin Albumin/Globulin Ratio Lipase Venous Blood Potassium 3.4 L Urine Color [place] Urine Clarity Turbid Urine pH 6.0 Ur Specific [place] 1.014 Urine Protein 100 Urine Glucose (UA) Neg Urine Ketones Negative Urine Blood Small Urine Nitrate Negative Urine Bilirubin Negative Urine Urobilinogen 0.2-1.0 Ur Leukocyte Esterase Large Urine RBC (Auto) 12 H Urine WBC Clumps (Auto) Mod H Urine Microscopic WBC 1339 H Urine Bacteria Many H 09/18/17 09/19/17 09/19/17 06:07 05:30 05:30 WBC 13.4 H RBC 3.82 Hgb 11.5 L Hct 33.4 L MCV 87.5 MCH 30.1 MCHC 34.4 RDW 13.8 Plt Count 116 L MPV Neut % (Auto) Lymph % (Auto) Whitman % (Auto) Eos % (Auto) Baso % (Auto) Neut # (Auto) Lymph # (Auto) Whitman # (Auto) Eos # (Auto) Baso # (Auto) Neutrophils % (Manual) Lymphocytes % (Manual) Monocytes % (Manual) Platelet Estimate Poikilocytosis (manual Anisocytosis (manual) Ovalocytes PT INR APTT pO2 VBG pH VBG pCO2 VBG HCO3 VBG Total CO2 VBG O2 Sat (Calc) VBG Base Excess VBG Potassium Glucose Lactate FiO2 Sodium 138 137 Potassium 3.5 L 3.0 L Chloride 105 99 Carbon Dioxide 24 30 Anion Gap 13 11 BUN 17 10 Creatinine 1.1 0.8 Est GFR ( Amer) > 60 > 60 Est GFR (Non-Af Amer) 50 > 60 Random Glucose 126 H 99 Calcium 7.9 L 8.3 L Total Bilirubin 0.6 AST 34 ALT 36 Alkaline Phosphatase 70 Total Protein 6.0 L Albumin 3.1 L D Globulin 2.9 Albumin/Globulin Ratio 1.0 Lipase Venous Blood Potassium Urine Color Urine Clarity Urine pH Ur Specific [place] Urine Protein Urine Glucose (UA) Urine Ketones Urine Blood Urine Nitrate Urine Bilirubin Urine Urobilinogen Ur Leukocyte Esterase Urine RBC (Auto) Urine WBC Clumps (Auto) Urine Microscopic WBC Urine Bacteria 09/20/17 09/20/17 05:20 05:20 WBC 9.0 RBC 3.99 Hgb 12.0 Hct 34.5 MCV 86.6 MCH 30.2 MCHC 34.8 RDW 13.6 Plt Count 114 L MPV Neut % (Auto) Lymph % (Auto) Whitman % (Auto) Eos % (Auto) Baso % (Auto) Neut # (Auto) Lymph # (Auto) Whitman # (Auto) Eos # (Auto) Baso # (Auto) Neutrophils % (Manual) Lymphocytes % (Manual) Monocytes % (Manual) Platelet Estimate Poikilocytosis (manual Anisocytosis (manual) Ovalocytes PT INR APTT pO2 VBG pH VBG pCO2 VBG HCO3 VBG Total CO2 VBG O2 Sat (Calc) VBG Base Excess VBG Potassium Glucose Lactate FiO2 Sodium 136 Potassium 3.4 L Chloride 98 Carbon Dioxide 26 Anion Gap 15 BUN 7 Creatinine 0.6 L Est GFR ( Amer) > 60 Est GFR (Non-Af Amer) > 60 Random Glucose 109 H Calcium 8.4 Total Bilirubin 0.6 AST 51 H D ALT 49 Alkaline Phosphatase 86 Total Protein 6.5 Albumin 3.5 Globulin 3.0 Albumin/Globulin Ratio 1.2 Lipase Venous Blood Potassium Urine Color Urine Clarity Urine pH Ur Specific [place] Urine Protein Urine Glucose (UA) Urine Ketones Urine Blood Urine Nitrate Urine Bilirubin Urine Urobilinogen Ur Leukocyte Esterase Urine RBC (Auto) Urine WBC Clumps (Auto) Urine Microscopic WBC Urine Bacteria Microbiology 09/19/17 12:04 Blood Blood Culture - Preliminary NO GROWTH AFTER 24 HOURS 09/19/17 11:54 Blood Blood Culture - Preliminary NO GROWTH AFTER 24 HOURS 09/17/17 00:29 Blood Blood Culture - Final Escherichia Coli 09/17/17 00:29 Blood Gram Stain - Final 09/17/17 00:29 Blood Blood Culture - Final Escherichia Coli 09/17/17 00:29 Blood Gram Stain - Final 09/17/17 18:08 Urine Urine Culture - Final Escherichia Coli Accession No. : [id number] Patient Name / ID : MARILEE MOORE / [id number] Exam Date : 09/17/2017 18:13:53 ( Approved ) Study Comment : Sex / Age : F / 62Y Creator : Benjamín Medrano MD Dictator : Benjamín Medrano MD Dependency Director : Library Customer Service Clerk : Benjamín Medrano MD Approver2 : Report Date : 09/17/2017 18:34:06 My Comment : PROCEDURE: CT Abdomen and Pelvis with contrast HISTORY: BLQ pain, v/d COMPARISON: None. TECHNIQUE: Contrast dose: 95 mL Omnipaque 300 Radiation dose: Total exam DLP = 420.7 mGy-cm. This CT exam was performed using one or more of the following dose reduction techniques: Automated exposure control, adjustment of the mA and/or kV according to patient size, and/or use of iterative reconstruction technique. FINDINGS: LOWER THORAX: Unremarkable. LIVER: Hepatic steatosis. No gross lesion or ductal dilatation. GALLBLADDER AND BILE DUCTS: Prior cholecystectomy with surgical clips. PANCREAS: Unremarkable. No gross lesion or ductal dilatation. SPLEEN: Unremarkable. ADRENALS: Unremarkable. No mass. KIDNEYS AND URETERS: Patchy inhomogeneous enhancement of the left kidney with perinephric stranding. Enhancement of the left urothelium. Multiple bilateral renal cysts. No hydronephrosis. No solid mass. VASCULATURE: Unremarkable. No aortic aneurysm. BOWEL: Colonic diverticulosis. No obstruction. No gross mural thickening. APPENDIX: No findings to suggest acute appendicitis. PERITONEUM: Unremarkable. No free fluid. No free air. LYMPH NODES: Unremarkable. No enlarged lymph nodes. BLADDER: Unremarkable. REPRODUCTIVE: 2.4 x 1.8 cm fibroid probably in a submucosal location. BONES: No acute fracture. Degenerative changes. OTHER FINDINGS: None. IMPRESSION: Patchy inhomogeneous enhancement of the left kidney with perinephric stranding enhancement left urothelium findings are compatible with ascending urinary tract infection with pyelonephritis. Additional findings as above. Assessment & Plan (1) UTI (urinary tract infection) Status: Acute (2) Bacteremia due to Escherichia coli Status: Acute (3) Pyelonephritis due to Escherichia coli Status: Acute - Assessment and Plan (Free Text) Assessment: A/P- 62 year old female with e.coli UTI/pyelonephtitis and e.coli bacteremia. clinically ahs improved. afebrile normal wbc count urien cx on admission- E.COli not ESBL blood cx from admission x 2- E.coli not ESBL repeat blood cx 09/19/2017- neg x 2 so far PLan- advise to continue with IV meropenem for e.coli bacteremi and UTI. day #1 today. check TTE r/o vegetations. check 2 more blood cx. will need total of 14 days of IV antibiotics for GNR bacteremia. All above d/w patient and her questions were answered and she verbalizes full understanding of all above and agrees with above plan of care. Thank you for allowing me to take part in the care of this patient.
[2017-09-19] MEDS ORDERED: Potassium CL 10mEq/100ml 100 ML IVPB SCH (11:00)
[2017-09-19] MEDS ORDERED: Meropenem 1 GM in Sodium Chloride 0.9% 100 ML IVPB SCH (11:00)
[2017-09-19] MEDS ORDERED: Potassium Chloride 20 mEq 100 ML IV SCH (16:00)
[2017-09-19] MEDS: Meropenem 1 GM in Sodium Chloride 0.9% 100 ML IVPB SCH (20:59)
[2017-09-20] MEDS: Lactated Ringer's 1,000 ML IV SCH ×2 (01:21→06:42)
[2017-09-20] MEDS: Meropenem 1 GM in Sodium Chloride 0.9% 100 ML IVPB SCH ×3 (04:49→21:29)
[2017-09-20 06:29] LABS: MEAN CELL VOLUME 86.6 fl (81.0-99.0); MEAN CORPUSCULAR HEMOGLOBIN 30.2 pg (27.0-31.0); MEAN CORPUSCULAR HGB CONC 34.8 g/dL (33.0-37.0); RBC 3.99 Mil/uL (3.80-5.20); RED CELL DISTRIBUTION WIDTH 13.6 % (11.5-14.5)
[2017-09-20 07:05] LABS: ALB/GLOB RATIO 1.2 (1.0-2.1); ALBUMIN 3.5 g/dL (3.5-5.0); ALT/SGPT 49 U/L (9-52); AST/SGOT 51 U/L (14-36); BLOOD UREA NITROGEN 7 mg/dl (7-17); CALCIUM 8.4 mg/dL (8.4-10.2); GFR AFRICAN-AMERICAN > 60; GFR NON-AFRICAN AMERICAN > 60
[2017-09-20] MEDS ORDERED: Potassium Chloride 20 mEq/15 ml LIQ UD PO ONE (07:08)
[2017-09-20] MEDS: Enoxaparin 40 mg Syringe SC SCH (08:38)
--- NOTE | 2017-09-20 10:24 | CARD ---
APPROVED REPORT EKG Measurement Heart [id number] <Conclusion> Normal sinus rhythm Moderate voltage criteria for LVH, may be normal variant Nonspecific ST and T wave abnormality Abnormal ECG
--- NOTE | 2017-09-20 12:52 | CP.PCM.PN ---
Subjective - Date & Time of Evaluation Date of Evaluation: 09/20/17 Time of Evaluation: 12:50 - Subjective Subjective: 62 y/o female w/ pmh of newly diagnosed HTN who was admitted for UTI complicated with pylonephritis. Seen and examined at bedside. She states that her pain is improved, c/o non- bloody diarrhea since last night. No acute events over night. Objective - Vital Signs/Intake and Output Vital Signs (last 24 hours): Temp Pulse Resp BP Pulse Ox 99.4 F 81 20 120/73 96 09/20/17 07:52 09/20/17 07:52 09/20/17 07:52 09/20/17 07:52 09/20/17 07:52 - Medications Medications: Current Medications Acetaminophen (Tylenol 325mg Tab) 650 mg PO Q6 PRN PRN Reason: Fever >100.4 F Last Admin: 09/20/17 04:54 Dose: 650 mg Enoxaparin Sodium (Lovenox) 40 mg SC DAILY [facility] PRN Reason: Protocol Last Admin: 09/20/17 08:38 Dose: 40 mg Famotidine (Pepcid) 20 mg PO DAILY [facility] Last Admin: 09/20/17 08:39 Dose: 20 mg Hydrochlorothiazide (Microzide) 12.5 mg PO DAILY [facility] Last Admin: 09/20/17 08:38 Dose: 12.5 mg Meropenem 1 gm/ Sodium (Chloride) 100 mls @ 100 mls/hr IVPB Q8@0500,1300,2100 [facility] PRN Reason: Protocol Last Admin: 09/20/17 04:49 Dose: 100 mls/hr Lactated Ringer's (Lactated Ringer's) 1,000 mls @ 75 mls/hr IV .[id number] [facility] Ketorolac Tromethamine (Toradol) 15 mg IVP Q6 PRN PRN Reason: Pain, moderate (4-7) Ketorolac Tromethamine (Toradol) 30 mg IVP Q6 PRN PRN Reason: Pain, severe (8-10) Ondansetron HCl (Zofran Odt) 4 mg PO Q8H PRN PRN Reason: Nausea/Vomiting Last Admin: 09/20/17 04:55 Dose: 4 mg - Labs Labs: 09/20/17 05:20 09/20/17 05:20 PT 17.2 Seconds (9.8-13.1) H 09/17/17 17:25 INR 1.5 (0.9-1.2) H 09/17/17 17:25 APTT 29.5 Seconds (25.6-37.1) 09/17/17 17:25 - Constitutional Appears: Well, No Acute Distress - ENT Exam ENT Exam: Mucous Membranes Moist - Respiratory Exam Respiratory Exam: Clear to Ausculation Bilateral, NORMAL BREATHING PATTERN - Cardiovascular Exam Cardiovascular Exam: REGULAR RHYTHM, +S1, +S2 - GI/Abdominal Exam GI & Abdominal Exam: Soft, Normal Bowel Sounds. absent: Tenderness - Extremities Exam Extremities Exam: Normal Inspection. absent: Pedal Edema - Neurological Exam Neurological Exam: Alert, Awake, Oriented x3 - Skin Skin Exam: Dry, Intact, Warm Assessment and Plan - Assessment and Plan (Free Text) Assessment: 62 y/o female with PMHx of new diagnosed HTN admitted for acute Left side Pyelonephritis. Plan: 1) Acute Left Pyelonephritis -Urine culture positive for E. coli -blood culture positive 09/17/17 E. coli -CT of abdomen: patchy inhomogenous enhancement of left kidney w/ perinephric stranding, multiple bilateral cysts. no hydronephrosis. -C/W IV fluids maintenance -s/p Rocephin, switched to Meropenem as per ID -pain control with Toradol PRN based on severity -fever control with Acetaminophen 650 mg PO PRN -UA positive for blood, elevated WBC, large leukocyte esterase 2) Bactermia 2/2 to Pyelonephritis -most likely associated with acute Pyelo -leukocytosis improving, 9.0 today -f/u blood Cx 09/19 shows no growth -Echo pending -c/w empiric antibiotic -IV fluids -normal lactate on admission -normal coag panel 3) Hypokalemia -K+ is 3.4 -KCL 40mEq PO, K-runs x2 -follow up AM labs 4) GERD -stable -start famotidine 20 mg PO -recommended lifestyles modifications 5) Constipation -likely 2/2 poor dietary intake -now diarrhea likely 2/2 Senokot -stopped Senokot 6) HTN -c/w home Hctz 12.5 mg PO -heart healthy diet 7) DVT prophylaxis -SCDs -Lovenox 40 mg SC 8) Code Status -full code
[2017-09-21] MEDS: Meropenem 1 GM in Sodium Chloride 0.9% 100 ML IVPB SCH ×3 (04:30→20:57)
[2017-09-21] MEDS: Lactated Ringer's 1,000 ML IV SCH ×3 (04:33→21:00)
[2017-09-21 06:54] LABS: ALBUMIN 3.4 g/dL (3.5-5.0); ALT/SGPT 57 U/L (9-52); AST/SGOT 46 U/L (14-36); BLOOD UREA NITROGEN 12 mg/dl (7-17); CALCIUM 8.7 mg/dL (8.4-10.2); GFR AFRICAN-AMERICAN > 60; GFR NON-AFRICAN AMERICAN > 60
[2017-09-21] MEDS: Enoxaparin 40 mg Syringe SC SCH (08:07)
--- NOTE | 2017-09-21 10:20 | CP.PCM.PN ---
Subjective - Date & Time of Evaluation Date of Evaluation: 09/21/17 Time of Evaluation: 10:20 - Subjective Subjective: 62 y/o female w/ pmh of newly diagnosed HTN who was admitted for UTI complicated with pylonephritis. Seen and examined at bedside. Pain is improved. Diarrhea resolved. No acute events over night. Objective - Vital Signs/Intake and Output Vital Signs (last 24 hours): Temp Pulse Resp BP Pulse Ox 98.3 F 79 18 120/81 98 09/21/17 08:03 09/21/17 08:03 09/21/17 08:03 09/21/17 08:03 09/21/17 08:03 - Medications Medications: Current Medications Acetaminophen (Tylenol 325mg Tab) 650 mg PO Q6 PRN PRN Reason: Fever >100.4 F Last Admin: 09/21/17 02:46 Dose: 650 mg Enoxaparin Sodium (Lovenox) 40 mg SC DAILY [facility] PRN Reason: Protocol Last Admin: 09/21/17 08:07 Dose: 40 mg Famotidine (Pepcid) 20 mg PO DAILY [facility] Last Admin: 09/21/17 08:08 Dose: 20 mg Hydrochlorothiazide (Microzide) 12.5 mg PO DAILY [facility] Last Admin: 09/21/17 08:08 Dose: 12.5 mg Meropenem 1 gm/ Sodium (Chloride) 100 mls @ 100 mls/hr IVPB Q8@0500,1300,2100 [facility] PRN Reason: Protocol Last Admin: 09/21/17 04:30 Dose: 100 mls/hr Lactated Ringer's (Lactated Ringer's) 1,000 mls @ 75 mls/hr IV .[id number] [facility] Last Admin: 09/21/17 04:33 Dose: 75 mls/hr Ketorolac Tromethamine (Toradol) 15 mg IVP Q6 PRN PRN Reason: Pain, moderate (4-7) Ketorolac Tromethamine (Toradol) 30 mg IVP Q6 PRN PRN Reason: Pain, severe (8-10) Ondansetron HCl (Zofran Odt) 4 mg PO Q8H PRN PRN Reason: Nausea/Vomiting Last Admin: 09/20/17 04:55 Dose: 4 mg - Labs Labs: 09/20/17 05:20 09/21/17 05:25 PT 17.2 Seconds (9.8-13.1) H 09/17/17 17:25 INR 1.5 (0.9-1.2) H 09/17/17 17:25 APTT 29.5 Seconds (25.6-37.1) 09/17/17 17:25 - Constitutional Appears: Well, No Acute Distress - ENT Exam ENT Exam: Mucous Membranes Moist - Respiratory Exam Respiratory Exam: Clear to Ausculation Bilateral, NORMAL BREATHING PATTERN - Cardiovascular Exam Cardiovascular Exam: REGULAR RHYTHM, +S1, +S2 - GI/Abdominal Exam GI & Abdominal Exam: Soft, Normal Bowel Sounds. absent: Tenderness - Extremities Exam Extremities Exam: Normal Inspection. absent: Pedal Edema, Tenderness - Neurological Exam Neurological Exam: Alert, Awake, Oriented x3 - Skin Skin Exam: Dry, Intact, Warm Assessment and Plan - Assessment and Plan (Free Text) Assessment: 62 y/o female with PMHx of new diagnosed HTN admitted for acute Left side Pyelonephritis. Plan: 1) Acute Left Pyelonephritis -Urine culture positive for E. coli -blood culture positive 09/17/17 E. coli, repeat is pending -CT of abdomen: patchy inhomogenous enhancement of left kidney w/ perinephric stranding, multiple bilateral cysts. no hydronephrosis. -C/W IV fluids maintenance -s/p Rocephin, switched to Meropenem x 14 days as per ID -pain control with Toradol PRN based on severity -fever control with Acetaminophen 650 mg PO PRN -UA positive for blood, elevated WBC, large leukocyte esterase 2) Bactermia 2/2 to Pyelonephritis -most likely associated with acute Pyelo -f/u blood cx pending -Echo report pending -c/w empiric antibiotic -IV fluids -normal lactate on admission -normal coag panel 3) Hypokalemia -K 4.4 today -replaced -follow up AM labs 4) GERD -stable -start famotidine 20 mg PO -recommended lifestyles modifications 5) Constipation -likely 2/2 poor dietary intake -now diarrhea likely 2/2 Senokot, resolved today -stopped Senokot 6) HTN -c/w home Hctz 12.5 mg PO -heart healthy diet 7) DVT prophylaxis -SCDs -Lovenox 40 mg SC 8) Code Status -full code
--- NOTE | 2017-09-21 10:34 | CP.PCM.PN ---
Subjective - Date & Time of Evaluation Date of Evaluation: 09/21/17 Time of Evaluation: 10:33 - Subjective Subjective: Id note- Pt. seen and examined today . pt. states she feels better today and denies any lower abd pain and denies any dysurea. Objective - Vital Signs/Intake and Output Vital Signs (last 24 hours): Temp Pulse Resp BP Pulse Ox 98.3 F 79 18 120/81 98 09/21/17 08:03 09/21/17 08:03 09/21/17 08:03 09/21/17 08:03 09/21/17 08:03 - Medications Medications: Current Medications Acetaminophen (Tylenol 325mg Tab) 650 mg PO Q6 PRN PRN Reason: Fever >100.4 F Last Admin: 09/21/17 02:46 Dose: 650 mg Enoxaparin Sodium (Lovenox) 40 mg SC DAILY [facility] PRN Reason: Protocol Last Admin: 09/21/17 08:07 Dose: 40 mg Famotidine (Pepcid) 20 mg PO DAILY [facility] Last Admin: 09/21/17 08:08 Dose: 20 mg Hydrochlorothiazide (Microzide) 12.5 mg PO DAILY [facility] Last Admin: 09/21/17 08:08 Dose: 12.5 mg Meropenem 1 gm/ Sodium (Chloride) 100 mls @ 100 mls/hr IVPB Q8@0500,1300,2100 [facility] PRN Reason: Protocol Last Admin: 09/21/17 04:30 Dose: 100 mls/hr Lactated Ringer's (Lactated Ringer's) 1,000 mls @ 75 mls/hr IV .[id number] [facility] Last Admin: 09/21/17 04:33 Dose: 75 mls/hr Ketorolac Tromethamine (Toradol) 15 mg IVP Q6 PRN PRN Reason: Pain, moderate (4-7) Ketorolac Tromethamine (Toradol) 30 mg IVP Q6 PRN PRN Reason: Pain, severe (8-10) Ondansetron HCl (Zofran Odt) 4 mg PO Q8H PRN PRN Reason: Nausea/Vomiting Last Admin: 09/20/17 04:55 Dose: 4 mg - Labs Labs: - Additional Findings Additional findings: - Constitutional Appears: No Acute Distress - Head Exam Head Exam: ATRAUMATIC - Eye Exam Eye Exam: EOMI - ENT Exam ENT Exam: Normal Oropharynx - Neck Exam Neck exam: Positive for: Full Rom - Respiratory Exam Respiratory Exam: Clear to Auscultation Bilateral, NORMAL BREATHING PATTERN - Cardiovascular Exam Cardiovascular Exam: RRR, +S1, +S2 - GI/Abdominal Exam GI & Abdominal Exam: Normal Bowel Sounds, Soft Additional comments: NT, ND No CVA tenderness b/l - Extremities Exam Extremities exam: Positive for: normal inspection - Neurological Exam Neurological exam: Alert, Oriented x 3 Laboratory Results - last 72 hr 09/19/17 09/19/17 09/20/17 05:30 05:30 05:20 WBC 13.4 H 9.0 RBC 3.82 3.99 Hgb 11.5 L 12.0 Hct 33.4 L 34.5 MCV 87.5 86.6 MCH 30.1 30.2 MCHC 34.4 34.8 RDW 13.8 13.6 Plt Count 116 L 114 L Sodium 137 Potassium 3.0 L Chloride 99 Carbon Dioxide 30 Anion Gap 11 BUN 10 Creatinine 0.8 Est GFR ( Amer) > 60 Est GFR (Non-Af Amer) > 60 Random Glucose 99 Calcium 8.3 L Total Bilirubin 0.6 AST 34 ALT 36 Alkaline Phosphatase 70 Total Protein 6.0 L Albumin 3.1 L D Globulin 2.9 Albumin/Globulin Ratio 1.0 09/20/17 09/21/17 05:20 05:25 WBC RBC Hgb Hct MCV MCH MCHC RDW Plt Count Sodium 136 139 Potassium 3.4 L 4.4 Chloride 98 99 Carbon Dioxide 26 29 Anion Gap 15 15 BUN 7 12 Creatinine 0.6 L 0.8 Est GFR ( Amer) > 60 > 60 Est GFR (Non-Af Amer) > 60 > 60 Random Glucose 109 H 101 Calcium 8.4 8.7 Total Bilirubin 0.6 0.5 AST 51 H D 46 H ALT 49 57 H Alkaline Phosphatase 86 87 Total Protein 6.5 6.8 Albumin 3.5 3.4 L Globulin 3.0 3.4 Albumin/Globulin Ratio 1.2 1.0 Microbiology 09/19/17 12:04 Blood Blood Culture - Preliminary NO GROWTH AFTER 48 HOURS 09/19/17 11:54 Blood Blood Culture - Preliminary NO GROWTH AFTER 48 HOURS 09/17/17 00:29 Blood Blood Culture - Final Escherichia Coli 09/17/17 00:29 Blood Gram Stain - Final 09/17/17 00:29 Blood Blood Culture - Final Escherichia Coli 09/17/17 00:29 Blood Gram Stain - Final 09/17/17 18:08 Urine Urine Culture - Final Escherichia Coli Assessment and Plan (1) UTI (urinary tract infection) Status: Acute (2) Bacteremia due to Escherichia coli Status: Acute (3) Pyelonephritis due to Escherichia coli Status: Acute - Assessment and Plan (Free Text) Assessment: A/P- 62 year old female with e.coli UTI/pyelonephtitis and e.coli bacteremia. clinically much improved. afebrile normal wbc count urien cx on admission- E.COli not ESBL blood cx from admission x 2- E.coli not ESBL repeat blood cx 09/19/2017- neg x 2 so far TTE- report pending PLan- advise to continue with IV meropenem for e.coli bacteremi and UTI. day #3. today. f/u TTE report. check 2 more blood cx. will need total of 14 days of IV antibiotics for e.coli bacteremia. will ask lab to check sensitivity for ceftriaxone so that we could de-escalate the IV abx if e.coli is sensitive to this. All above d/w patient and her questions were answered and she verbalizes full understanding of all above and agrees with above plan of care.
--- NOTE | 2017-09-21 14:50 | PQF ---
PROVIDER RESPONSE TEXT: Pt has bacteremia with sepsis REVIEWER QUERY TEXT: Bacteremia Underlying Cause E. Coli Bacteremia is documented in the Medical Record. 1) Please clarify if this is Bacteremia With or Without Sepsis. The patient's Clinical Indicators include: Admitted with abdominal pain radiating to the L flank, fever, nausea, vomiting and burning on urinati on. WBC 19.3-> 23.6-> 13.4 L shift, lactate 1.0, glucose 140, 126, UA: turbid, blood, leukocytes, bacteri a URINE CS: E Coli, BLOOD CS: E Coli TEMP: 99.7, 100.6 x 2, 105.6, 102, 102.1, 97.9, 103.5 HR: 103, 94, 116, 106, 94, 91, 106, 102, 65, 82, 84 BP: 130/74, 163/60, 154/78, 124/70, 110/68. 153/83 R 20, 16, 18, 17 Treatment, IVF, Rocephin --> Merrem. Query created by: Edwige Sherman on 09/21/2017 2:08 PM Electronically signed by: Ruby Briggs MD 09/21/2017 2:47 PM
[2017-09-22] MEDS: Meropenem 1 GM in Sodium Chloride 0.9% 100 ML IVPB SCH (05:53)
[2017-09-22 07:11] LABS: BLOOD UREA NITROGEN 13 mg/dl (7-17); GFR AFRICAN-AMERICAN > 60; GFR NON-AFRICAN AMERICAN > 60
[2017-09-22 08:16] VITALS: O2SAT 97
[2017-09-22] MEDS: Enoxaparin 40 mg Syringe SC SCH (08:20)
[2017-09-22 10:47] VITALS: BP 147/84; PULSE 84; RESP 18; TEMP 98.4
[2017-09-22] MEDS ORDERED: Lidocaine 1% Inj (20ml) ONE (11:04)
--- NOTE | 2017-09-22 11:19 | PCM.SURG1 ---
Surgeon's Initial Post Op Note - Surgeon's Notes Surgeon: Toby Allen MD Correctional Corporal: NONE Type of Anesthesia: Local Pre-Operative Diagnosis: UTI Operative Findings: US showed a patent right basilic vein Post-Operative Diagnosis: UTI Operation Performed: Single lumen picc placement right basilic vein, 33 CM. Tip is in the the SVC. Specimen/Specimens Removed: NONE Estimated Blood Loss: EBL {In ML}: 2 Blood Products Given: N/A Drains Used: No Drains Post-Op Condition: Fair Date of Surgery/Procedure: 09/22/17 Time of Surgery/Procedure: 11:15
--- NOTE | 2017-09-22 11:24 | CP.PCM.PN ---
Subjective - Date & Time of Evaluation Date of Evaluation: 09/22/17 Time of Evaluation: 11:23 - Subjective Subjective: ID note- Pt. seen and examined today. Pt. denies any complaints today and states she feels much better. s/p picc line placement. Objective - Vital Signs/Intake and Output Vital Signs (last 24 hours): Temp Pulse Resp BP Pulse Ox 98.4 F 84 18 147/84 97 09/22/17 10:46 09/22/17 10:46 09/22/17 10:46 09/22/17 10:46 09/22/17 08:15 - Medications Medications: Current Medications Acetaminophen (Tylenol 325mg Tab) 650 mg PO Q6 PRN PRN Reason: Fever >100.4 F Last Admin: 09/21/17 02:46 Dose: 650 mg Enoxaparin Sodium (Lovenox) 40 mg SC DAILY [facility] PRN Reason: Protocol Last Admin: 09/22/17 08:20 Dose: Not Given Famotidine (Pepcid) 20 mg PO DAILY [facility] Last Admin: 09/22/17 08:21 Dose: 20 mg Hydrochlorothiazide (Microzide) 12.5 mg PO DAILY [facility] Last Admin: 09/22/17 08:21 Dose: 12.5 mg Meropenem 1 gm/ Sodium (Chloride) 100 mls @ 100 mls/hr IVPB Q8@0500,1300,2100 [facility] PRN Reason: Protocol Last Admin: 09/22/17 05:53 Dose: 100 mls/hr Lactated Ringer's (Lactated Ringer's) 1,000 mls @ 75 mls/hr IV .[id number] [facility] Last Admin: 09/21/17 21:00 Dose: 75 mls/hr Ketorolac Tromethamine (Toradol) 15 mg IVP Q6 PRN PRN Reason: Pain, moderate (4-7) Ketorolac Tromethamine (Toradol) 30 mg IVP Q6 PRN PRN Reason: Pain, severe (8-10) Ondansetron HCl (Zofran Odt) 4 mg PO Q8H PRN PRN Reason: Nausea/Vomiting Last Admin: 09/20/17 04:55 Dose: 4 mg - Labs Labs: - Additional Findings Additional findings: - Constitutional Appears: No Acute Distress - Head Exam Head Exam: ATRAUMATIC - Eye Exam Eye Exam: EOMI - ENT Exam ENT Exam: Normal Oropharynx - Neck Exam Neck exam: Positive for: Full Rom - Respiratory Exam Respiratory Exam: Clear to Auscultation Bilateral, NORMAL BREATHING PATTERN - Cardiovascular Exam Cardiovascular Exam: RRR, +S1, +S2 - GI/Abdominal Exam GI & Abdominal Exam: Normal Bowel Sounds, Soft Additional comments: NT, ND No CVA tenderness b/l - Extremities Exam Extremities exam: Positive for: normal inspection - Neurological Exam Neurological exam: Alert, Oriented x 3 Laboratory Results - last 72 hr 09/20/17 09/20/17 09/21/17 05:20 05:20 05:25 WBC 9.0 RBC 3.99 Hgb 12.0 Hct 34.5 MCV 86.6 MCH 30.2 MCHC 34.8 RDW 13.6 Plt Count 114 L Sodium 136 139 Potassium 3.4 L 4.4 Chloride 98 99 Carbon Dioxide 26 29 Anion Gap 15 15 BUN 7 12 Creatinine 0.6 L 0.8 Est GFR ( Amer) > 60 > 60 Est GFR (Non-Af Amer) > 60 > 60 Random Glucose 109 H 101 Calcium 8.4 8.7 Total Bilirubin 0.6 0.5 AST 51 H D 46 H ALT 49 57 H Alkaline Phosphatase 86 87 Total Protein 6.5 6.8 Albumin 3.5 3.4 L Globulin 3.0 3.4 Albumin/Globulin Ratio 1.2 1.0 09/22/17 05:25 WBC RBC Hgb Hct MCV MCH MCHC RDW Plt Count Sodium 138 Potassium 4.1 Chloride 101 Carbon Dioxide 27 Anion Gap 14 BUN 13 Creatinine 0.7 Est GFR ( Amer) > 60 Est GFR (Non-Af Amer) > 60 Random Glucose 90 Calcium 9.0 Total Bilirubin AST ALT Alkaline Phosphatase Total Protein Albumin Globulin Albumin/Globulin Ratio Microbiology 09/19/17 12:04 Blood Blood Culture - Preliminary NO GROWTH AFTER 3 DAYS 09/19/17 11:54 Blood Blood Culture - Preliminary NO GROWTH AFTER 3 DAYS 09/17/17 00:29 Blood Blood Culture - Final Escherichia Coli 09/17/17 00:29 Blood Gram Stain - Final 09/17/17 00:29 Blood Blood Culture - Final Escherichia Coli 09/17/17 00:29 Blood Gram Stain - Final 09/17/17 18:08 Urine Urine Culture - Final Escherichia Coli Assessment and Plan (1) UTI (urinary tract infection) Status: Acute (2) Bacteremia due to Escherichia coli Status: Acute (3) Pyelonephritis due to Escherichia coli Status: Acute - Assessment and Plan (Free Text) Assessment: A/P- 62 year old female with e.coli UTI/pyelonephtitis and e.coli bacteremia. clinically much improved. afebrile normal wbc count urine cx on admission- E.COli not ESBL blood cx from admission x 2- E.coli not ESBL sens to ceftriaxone was checked by micro and added repeat blood cx 09/19/2017- neg x 2 so far TTE- report pending PLan- completed 4 days of IV meropenem for e.coli bacteremia. will de-escalate to ceftriaxone 2 gram IV daily since the bacteria is sens to this antibiotic as well and it's daily dosing. will need total of 14 days of IV antibiotics for e.coli bacteremia.(10 more days ) pt. to also have 2 more blood cx done as outpatient at the completion of her abx therapy. All above d/w patient and her questions were answered and she verbalizes full understanding of all above and agrees with above plan of care. All above d/w Dr.Pierre Monzon.
[2017-09-22] MEDS ORDERED: cefTRIAXone 2 GM in Sodium Chloride 0.9% 100 ML IVPB SCH (11:30)
--- NOTE | 2017-09-22 12:21 | VASCULAR ---
PROCEDURE: Date of procedure: 09/22/2017 Procedure: 1. Placement of a right arm PICC with ultrasound and fluoroscopic guidance, CPT 19296 2. PICC tip confirmation with spot radiograph and is in the superior vena cava Medications: 1 percent lidocaine Total Fluoro time: 2.9 seconds Radiation: 0.33 MGy EBL: 2 cc HISTORY: Infection requiring long-term IV antibiotics TECHNIQUE: Following informed consent and procedure time-out, the patient was placed supine on the interventional table and the right arm prepped and draped in the usual sterile fashion. Ultrasound showed a patent and compressible right basilic vein. After the skin was anesthetized with lidocaine, the basilic vein was accessed with micro micropuncture technique using ultrasound guidance. A guidewire was then advanced under fluoroscopic guidance into the superior vena cava. An image documenting ultrasound guidance for vascular access was permanently saved. The length of the single-lumen 4 [place] PICC was trimmed to 33 centimeters and advanced through a peel-away sheath. The PICC was position with tip of PICC confirm a spot radiograph the superior vena cava. The PICC was secured to the patient's skin. The PICC was flushed. A biopatch and sterile dressing was applied. IMPRESSION: Placement of a single-lumen 4 [place] PICC trimmed to 33 centimeters via right basilic vein. The tip of the PICC is confirmed with spot radiograph and is in the superior vena cava.
--- NOTE | 2017-09-22 13:27 | CP.PCM.DIS ---
Provider - Provider Date of Admission: 09/17/17 19:37 Attending physician: Ruby Briggs MD Time Spent in preparation of Discharge (in minutes): 35 Diagnosis - Discharge Diagnosis (1) Bacteremia due to Escherichia coli Status: Acute (2) Pyelonephritis due to Escherichia coli Status: Acute (3) UTI (urinary tract infection) Status: Acute Hospital Course - Lab Results Lab Results: Micro Results 09/19/17 12:04 Blood Blood Culture - Preliminary NO GROWTH AFTER 3 DAYS 09/19/17 11:54 Blood Blood Culture - Preliminary NO GROWTH AFTER 3 DAYS 09/17/17 00:29 Blood Blood Culture - Final Escherichia Coli 09/17/17 00:29 Blood Gram Stain - Final 09/17/17 00:29 Blood Blood Culture - Final Escherichia Coli 09/17/17 00:29 Blood Gram Stain - Final 09/17/17 18:08 Urine Urine Culture - Final Escherichia Coli Most Recent Lab Values WBC 9.0 K/uL (4.8-10.8) 09/20/17 05:20 RBC 3.99 Mil/uL (3.80-5.20) 09/20/17 05:20 Hgb 12.0 g/dL (12.0-16.0) 09/20/17 05:20 Hct 34.5 % (34.0-47.0) 09/20/17 05:20 MCV 86.6 fl (81.0-99.0) 09/20/17 05:20 MCH 30.2 pg (27.0-31.0) 09/20/17 05:20 MCHC 34.8 g/dL (33.0-37.0) 09/20/17 05:20 RDW 13.6 % (11.5-14.5) 09/20/17 05:20 Plt Count 114 K/uL (130-400) L 09/20/17 05:20 MPV 10.1 fl (7.2-11.7) 09/18/17 06:07 Neut % (Auto) 89.0 % (50.0-75.0) H 09/18/17 06:07 Lymph % (Auto) 4.9 % (20.0-40.0) L 09/18/17 06:07 [place] % (Auto) 5.8 % (0.0-10.0) 09/18/17 06:07 Eos % (Auto) 0.0 % (0.0-4.0) 09/18/17 06:07 Baso % (Auto) 0.3 % (0.0-2.0) 09/18/17 06:07 Neut # (Auto) 21.0 K/uL (1.8-7.0) H 09/18/17 06:07 Lymph # (Auto) 1.2 K/uL (1.0-4.3) 09/18/17 06:07 [place] # (Auto) 1.4 K/uL (0.0-0.8) H 09/18/17 06:07 Eos # (Auto) 0.0 K/uL (0.0-0.7) 09/18/17 06:07 Baso # (Auto) 0.1 K/uL (0.0-0.2) 09/18/17 06:07 Neutrophils % (Manual) 91 % (42-75) H 09/17/17 17:25 Lymphocytes % (Manual) 5 % (20-50) L 09/17/17 17:25 Monocytes % (Manual) 4 % (0-10) 09/17/17 17:25 Platelet Estimate Normal (NORMAL) 09/17/17 17:25 Poikilocytosis (manual Slight 09/17/17 17:25 Anisocytosis (manual) Slight 09/17/17 17:25 Ovalocytes Slight 09/17/17 17:25 PT 17.2 Seconds (9.8-13.1) H 09/17/17 17:25 INR 1.5 (0.9-1.2) H 09/17/17 17:25 APTT 29.5 Seconds (25.6-37.1) 09/17/17 17:25 pO2 26 mm/Hg (30-55) L 09/17/17 19:30 VBG pH 7.42 (7.32-7.43) 09/17/17 19:30 VBG pCO2 45 mmHg (40-60) 09/17/17 19:30 VBG HCO3 26.7 mmol/L 09/17/17 19:30 VBG Total CO2 30.6 mmol/L (22-28) H 09/17/17 19:30 VBG O2 Sat (Calc) 55.3 % (40-65) 09/17/17 19:30 VBG Base Excess 4.0 mmol/L (0.0-2.0) H 09/17/17 19:30 VBG Potassium 3.4 mmol/L (3.6-5.2) L 09/17/17 19:30 Sodium 135.0 mmol/L (132-148) 09/17/17 19:30 Chloride 104.0 mmol/L (98-107) 09/17/17 19:30 Glucose 120 mg/dL (65-105) H 09/17/17 19:30 Lactate 1.0 mmol/L (0.7-2.1) 09/17/17 19:30 FiO2 21.0 % 09/17/17 19:30 Sodium 138 mmol/l (132-148) 09/22/17 05:25 Potassium 4.1 MMOL/L (3.6-5.0) 09/22/17 05:25 Chloride 101 mmol/L (98-107) 09/22/17 05:25 Carbon Dioxide 27 mmol/L (22-30) 09/22/17 05:25 Anion Gap 14 (10-20) 09/22/17 05:25 BUN 13 mg/dl (7-17) 09/22/17 05:25 Creatinine 0.7 mg/dl (0.7-1.2) 09/22/17 05:25 Est GFR ( Amer) > 60 09/22/17 05:25 Est GFR (Non-Af Amer) > 60 09/22/17 05:25 Random Glucose 90 mg/dL (65-105) 09/22/17 05:25 Calcium 9.0 mg/dL (8.4-10.2) 09/22/17 05:25 Total Bilirubin 0.5 mg/dl (0.2-1.3) 09/21/17 05:25 AST 46 U/L (14-36) H 09/21/17 05:25 ALT 57 U/L (9-52) H 09/21/17 05:25 Alkaline Phosphatase 87 U/L (38-126) 09/21/17 05:25 Total Protein 6.8 G/DL (6.3-8.2) 09/21/17 05:25 Albumin 3.4 g/dL (3.5-5.0) L 09/21/17 05:25 Globulin 3.4 gm/dL (2.2-3.9) 09/21/17 05:25 Albumin/Globulin Ratio 1.0 (1.0-2.1) 09/21/17 05:25 Lipase 99 U/L (23-300) 09/17/17 17:25 Venous Blood Potassium 3.4 mmol/L (3.6-5.2) L 09/17/17 19:30 Urine Color [place] (YELLOW) 09/17/17 17:53 Urine Clarity Turbid (Clear) 09/17/17 17:53 Urine pH 6.0 (5.0-8.0) 09/17/17 17:53 Ur Specific [place] 1.014 (1.003-1.030) 09/17/17 17:53 Urine Protein 100 mg/dL (NEGATIVE) 09/17/17 17:53 Urine Glucose (UA) Neg mg/dL (Normal) 09/17/17 17:53 Urine Ketones Negative mg/dL (NEGATIVE) 09/17/17 17:53 Urine Blood Small (NEGATIVE) 09/17/17 17:53 Urine Nitrate Negative (NEGATIVE) 09/17/17 17:53 Urine Bilirubin Negative (NEGATIVE) 09/17/17 17:53 Urine Urobilinogen 0.2-1.0 mg/dL (0.2-1.0) 09/17/17 17:53 Ur Leukocyte Esterase Large Bassam/uL (Negative) 09/17/17 17:53 Urine RBC (Auto) 12 /hpf (0-3) H 09/17/17 17:53 Urine WBC Clumps (Auto) Mod /hpf (NONE) H 09/17/17 17:53 Urine Microscopic WBC 1339 /hpf (0-5) H 09/17/17 17:53 Urine Bacteria Many (<OCC) H 09/17/17 17:53 - Hospital Course Hospital Course: 62 y/o female admitted with sepsis due to E. coli pylonephritis and bacteraemia , treated w/ IV Ceftriaxone 1gm QD, then Meropenem 1gm QD. Repeat cultures are negative. She is being discharged w/ PICC line to TCU for IV Ceftriaxone 2 gm for 5 days - Date & Time of H&P Date of H&P: 09/17/17 Time of H&P: 20:31 Discharge Exam - Head Exam Head Exam: ATRAUMATIC - ENT Exam ENT Exam: Mucous Membranes Moist - Respiratory Exam Respiratory Exam: Clear to PA & Lateral, NORMAL BREATHING PATTERN - Cardiovascular Exam Cardiovascular Exam: REGULAR RHYTHM, +S1, +S2 - GI/Abdominal Exam GI & Abdominal Exam: Normal Bowel Sounds, Soft. absent: Distended, Tenderness - Back Exam Back exam: absent: CVA tenderness (L), CVA tenderness (R) - Neurological Exam Neurological exam: Alert, Oriented x3 - Psychiatric Exam Psychiatric exam: Normal Affect - Skin Skin Exam: Dry, Intact, Warm Discharge Plan - Follow Up Plan Condition: GOOD Disposition: REHAB FACILITY/REHAB UNIT Instructions: Urinary Tract Infection in Women (DC) Referrals: Jennifer Lyn MD [Staff Provider] -
== END 2017-09-22 14:35 | DRG 901 ==
LOC: H.ER 14:58 → H.ERHOLD 19:37 → H.MEDSURG1 09-18 00:05
PROVIDERS: ADMIT Family Medicine Geriatric Medicine; ATTEND Family Medicine Geriatric Medicine
PROC: 02HV33Z Insertion of Infusion Device into Superior Vena Cava, Percutaneous Approach (ICD-10-PCS; principal; 2017-09-21)
PROC: 3E04329 Introduction of Other Anti-infective into Central Vein, Percutaneous Approach (ICD-10-PCS; 2017-09-21)
PROC: B518ZZA Fluoroscopy of Superior Vena Cava, Guidance (ICD-10-PCS; 2017-09-21)
DX: A41.51 Sepsis due to Escherichia coli [E. coli] (principal); N10 Acute pyelonephritis; E87.6 Hypokalemia; I10 Essential (primary) hypertension; K21.9 Gastro-esophageal reflux disease without esophagitis; E78.00 Pure hypercholesterolemia, unspecified; K59.00 Constipation, unspecified; K29.70 Gastritis, unspecified, without bleeding; M19.90 Unspecified osteoarthritis, unspecified site

== ENCOUNTER 2017-09-22 15:18 | Inpatient (IN) | payer MEDICAID ==
[2017-09-22 15:38] VITALS: BMI 28.1
[2017-09-22 17:06] VITALS: RESP 20
[2017-09-22] MEDS: cefTRIAXone 2 GM in Sodium Chloride 0.9% 100 ML IVPB SCH (17:48)
[2017-09-22] MEDS ORDERED: Tuberculin 5 Units/0.1 ml Inj ID ONE (18:26)
[2017-09-23] MEDS: Enoxaparin 40 mg Syringe SC SCH (08:33)
--- NOTE | 2017-09-23 12:35 | CP.PCM.HP ---
History of Present Illness - History of Present Illness History of Present Illness: 62 y/o female w/ UTI and left sided pylonephritis admitted to TCU to continue IV antibiotics Present on Admission - Present on Admission Any Indicators Present on Admission: No History of DVT/PE: No History of Uncontrolled Diabetes: No Urinary Catheter: No Decubitus Ulcer Present: No Review of Systems - Constitutional Constitutional: absent: Chills, Excessive Sweating, Fatigue, Fever - Cardiovascular Cardiovascular: absent: Chest Pain - Respiratory Respiratory: absent: Cough, Dyspnea - Gastrointestinal Gastrointestinal: absent: Abdominal Pain, Change in Bowel Habits, Constipation, Diarrhea, Vomiting - Genitourinary Genitourinary: absent: Difficulty Urinating, Dysuria, Flank Pain, Hematuria, Urinary Incontinence, Urinary Frequency, Urinary Urgency - Musculoskeletal Musculoskeletal: absent: Joint Swelling, Numbness Past Patient History - Past Medical History & Family History Past Medical History?: Yes - Past Social History Smoking Status: Never Smoked - CARDIAC Hx Cardiac Disorders: Yes Hx Hypercholesterolemia: Yes Hx Hypertension: Yes - PULMONARY Hx Respiratory Disorders: No - NEUROLOGICAL Other/Comment: headaches - HEENT Hx HEENT Problems: Yes Hx Cataracts: Yes - RENAL Hx Chronic Kidney Disease: No Hx Pyelonephritis: Yes (current admission) - ENDOCRINE/METABOLIC Hx Endocrine Disorders: No - HEMATOLOGICAL/ONCOLOGICAL Hx Blood Disorders: No Hx AIDS: No Hx Human Immunodeficiency Virus (HIV): No - INTEGUMENTARY Hx Dermatological Problems: Yes Other/Comment: red birthmark on right chin - MUSCULOSKELETAL/RHEUMATOLOGICAL Hx Musculoskeletal Disorders: Yes Hx Arthritis: Yes Hx Falls: No Hx Fractures: Yes (right wrist due to fall) - GASTROINTESTINAL Hx Gastrointestinal Disorders: Yes Hx Gastritis: Yes - GENITOURINARY/GYNECOLOGICAL Hx Genitourinary Disorders: No Hx Urinary Tract Infection: Yes - PSYCHIATRIC Hx Psychophysiologic Disorder: No Hx Substance Use: No - SURGICAL HISTORY Hx Surgeries: Yes Hx Cholecystectomy: Yes - ANESTHESIA Hx Anesthesia: Yes Hx Anesthesia Reactions: No Hx Malignant Hyperthermia: No Meds Allergies/Adverse Reactions: Allergies Allergy/AdvReac Type Severity Reaction Status Date / Time No Known Allergies Allergy Verified 09/22/17 15:40 Physical Exam - Constitutional Appears: Well, No Acute Distress - Eye Exam Eye Exam: Normal appearance - ENT Exam ENT Exam: Mucous Membranes Moist - Respiratory Exam Respiratory Exam: Clear to Auscultation Bilateral, NORMAL BREATHING PATTERN - Cardiovascular Exam Cardiovascular Exam: REGULAR RHYTHM, RRR, +S1, +S2 - GI/Abdominal Exam GI & Abdominal Exam: Normal Bowel Sounds, Soft. absent: Tenderness - Extremities Exam Extremities exam: Positive for: normal inspection. Negative for: pedal edema, tenderness - Back Exam Back exam: NORMAL INSPECTION. absent: CVA tenderness (L), CVA tenderness (R), paraspinal tenderness - Neurological Exam Neurological exam: Alert, Oriented x3 - Psychiatric Exam Psychiatric exam: Normal Affect - Skin Skin Exam: Dry, Intact, Warm Results - Vital Signs Recent Vital Signs: Last Vital Signs Temp 98.2 F 09/23/17 08:16 Pulse 78 09/23/17 08:16 Resp 20 09/23/17 08:16 BP 110/66 09/23/17 08:16 Pulse Ox 96 09/23/17 08:16 Assessment & Plan - Assessment and Plan (Free Text) Assessment: 62 y/o female w/ UTI and left sided pylonephritis admitted to TCU to continue IV antibiotics Plan: 1) Bactermia 2/2 Acute Left Pyelonephritis w/ sepsis -09/17/17 Urine culture positive for E. coli -09/17/17 blood culture positive 09/17/17 E. coli, repeat 09/19/17 is negative -leukocytosis, fever, tachycardia resolved -CT of abdomen: patchy inhomogenous enhancement of left kidney w/ perinephric stranding, multiple bilateral cysts. no hydronephrosis. -C/w IV abx for total of 14 days. -Day #5 Ceftriaxone 2 gm 2) GERD -stable, asymptomatic -recommended lifestyles modifications 3) HTN -c/w home Hctz 12.5 mg PO -heart healthy diet 4) DVT prophylaxis -SCDs -Lovenox 40 mg SC 5) Code Status -full code - Date & Time Date: 09/23/17 Time: 12:38 Decision To Admit - . Bed Request Type: Transitional Care Unit
[2017-09-23] MEDS: cefTRIAXone 2 GM in Sodium Chloride 0.9% 100 ML IVPB SCH (16:42)
[2017-09-24] MEDS: Enoxaparin 40 mg Syringe SC SCH (08:24)
[2017-09-24] MEDS: cefTRIAXone 2 GM in Sodium Chloride 0.9% 100 ML IVPB SCH (17:12)
[2017-09-25] MEDS: Enoxaparin 40 mg Syringe SC SCH (08:22)
[2017-09-25] MEDS: cefTRIAXone 2 GM in Sodium Chloride 0.9% 100 ML IVPB SCH (16:11)
[2017-09-26 06:58] LABS: MEAN CELL VOLUME 87.7 fl (81.0-99.0); MEAN CORPUSCULAR HEMOGLOBIN 30.5 pg (27.0-31.0); MEAN CORPUSCULAR HGB CONC 34.8 g/dL (33.0-37.0); RBC 4.25 Mil/uL (3.80-5.20); RED CELL DISTRIBUTION WIDTH 13.2 % (11.5-14.5); WHITE BLOOD COUNT 9.8 K/uL (4.8-10.8)
[2017-09-26 07:08] LABS: ALB/GLOB RATIO 1.1 (1.0-2.1); ALT/SGPT 85 U/L (9-52); AST/SGOT 67 U/L (14-36); BLOOD UREA NITROGEN 24 mg/dl (7-17); CALCIUM 9.1 mg/dL (8.4-10.2); GFR AFRICAN-AMERICAN > 60; GFR NON-AFRICAN AMERICAN > 60
[2017-09-26] MEDS: Enoxaparin 40 mg Syringe SC SCH (08:15)
[2017-09-26] MEDS: cefTRIAXone 2 GM in Sodium Chloride 0.9% 100 ML IVPB SCH (17:54)
[2017-09-27] MEDS: Enoxaparin 40 mg Syringe SC SCH (08:20)
--- NOTE | 2017-09-27 09:04 | CP.PCM.PN ---
Subjective - Date & Time of Evaluation Date of Evaluation: 09/27/17 Time of Evaluation: 07:35 - Subjective Subjective: PT is seen and examined on bed side. Pt was sitting on chair comfortable with no acute distress. No significant event overnight. Pt denies fever, Nausea, vomiting, headache, chest pain, SOB, abdominal pain, diarrhea, constipation, dysuria, polyuria. Objective - Vital Signs/Intake and Output Vital Signs (last 24 hours): Temp Pulse Resp BP Pulse Ox 97.7 F 71 20 111/59 L 100 09/27/17 08:19 09/27/17 08:19 09/27/17 08:19 09/27/17 08:19 09/27/17 08:19 - Medications Medications: Current Medications Enoxaparin Sodium (Lovenox) 40 mg SC DAILY [facility] PRN Reason: Protocol Last Admin: 09/27/17 08:20 Dose: 40 mg Hydrochlorothiazide (Microzide) 12.5 mg PO DAILY [facility] Last Admin: 09/27/17 08:20 Dose: 12.5 mg Ceftriaxone Sodium 2 gm/ (Sodium Chloride) 100 mls @ 100 mls/hr IVPB DAILY@ 1700 [facility] PRN Reason: Protocol Stop: 09/27/17 17:01 Last Admin: 09/26/17 17:54 Dose: 100 mls/hr Ondansetron HCl (Zofran Inj) 4 mg IVP Q6 PRN PRN Reason: Nausea/Vomiting - Labs Labs: 09/26/17 06:49 09/26/17 06:49 - Constitutional Appears: Well, Non-toxic, No Acute Distress - Head Exam Head Exam: ATRAUMATIC, NORMAL INSPECTION, NORMOCEPHALIC - Eye Exam Eye Exam: EOMI, Normal appearance, PERRL Pupil Exam: NORMAL ACCOMODATION - ENT Exam ENT Exam: Mucous Membranes Moist, Normal Exam - Neck Exam Neck Exam: Full ROM, Normal Inspection - Respiratory Exam Respiratory Exam: Clear to Ausculation Bilateral, NORMAL BREATHING PATTERN. absent: Rales, Rhonchi, Wheezes - Cardiovascular Exam Cardiovascular Exam: REGULAR RHYTHM, +S1, +S2 - GI/Abdominal Exam GI & Abdominal Exam: Soft, Normal Bowel Sounds - Extremities Exam Extremities Exam: Full ROM, Normal Capillary Refill, Normal Inspection. absent : Calf Tenderness - Back Exam Back Exam: NORMAL INSPECTION - Neurological Exam Neurological Exam: Alert, Awake, Oriented x3 - Psychiatric Exam Psychiatric exam: Normal Affect, Normal Mood - Skin Skin Exam: Dry, Intact, Normal Color, Warm Assessment and Plan - Assessment and Plan (Free Text) Assessment: A 62 yo f with UTI and Left sided pylo admitted to TCU to continue IV ABx Plan: Bactermia due to Acute Left Pyelonephritis with sepsis Urine culture + e.coli blood culture + E. coli, repeat 09/19/[address] of abdomen: patchy inhomogenous enhancement of left kidney w/ perinephric stranding, multiple bilateral cysts. no hydronephrosis. Continue IV abx for total of 14 days. Day #6 Ceftriaxone 2 gm GERD Asymptomatic Recommended lifestyles modifications HTN Discontinue HCTZ heart healthy diet DVT prophylaxis SCDs Lovenox 40 mg SC Code Status full code
[2017-09-27] MEDS: cefTRIAXone 2 GM in Sodium Chloride 0.9% 100 ML IVPB SCH (16:15)
[2017-09-28] MEDS: Enoxaparin 40 mg Syringe SC SCH (08:18)
[2017-09-28] MEDS: Sodium Chloride 0.9% 1,000 ML IV SCH ×2 (11:21→21:11)
[2017-09-28] MEDS: cefTRIAXone 2 GM in Sodium Chloride 0.9% 100 ML IVPB SCH (16:37)
[2017-09-29 06:38] LABS: HEMOGLOBIN 11.9 g/dL (12.0-16.0); MEAN CELL VOLUME 88.2 fl (81.0-99.0); MEAN CORPUSCULAR HEMOGLOBIN 30.6 pg (27.0-31.0); MEAN CORPUSCULAR HGB CONC 34.7 g/dL (33.0-37.0); RBC 3.9 Mil/uL (3.80-5.20); RED CELL DISTRIBUTION WIDTH 13.1 % (11.5-14.5); WHITE BLOOD COUNT 7.1 K/uL (4.8-10.8)
[2017-09-29 07:25] LABS: BLOOD UREA NITROGEN 17 mg/dl (7-17); CALCIUM 8.9 mg/dL (8.4-10.2); GFR AFRICAN-AMERICAN > 60; GFR NON-AFRICAN AMERICAN > 60
[2017-09-29] MEDS: Enoxaparin 40 mg Syringe SC SCH (08:14)
[2017-09-29] MEDS: Sodium Chloride 0.9% 1,000 ML IV SCH (10:59)
[2017-09-29 15:56] LABS: ALB/GLOB RATIO 1.2 (1.0-2.1); ALBUMIN 3.5 g/dL (3.5-5.0); BILIRUBIN,DIRECT 0.3 mg/ml (0.0-0.4)
[2017-09-29] MEDS: cefTRIAXone 2 GM in Sodium Chloride 0.9% 100 ML IVPB SCH (16:22)
[2017-09-30 08:27] VITALS: BP 115/69; PULSE 71; TEMP 97.8; O2SAT 99
[2017-09-30] MEDS ORDERED: cefTRIAXone 2 GM in Sodium Chloride 0.9% 100 ML IVPB SCH (10:00)
[2017-09-30] MEDS: Enoxaparin 40 mg Syringe SC SCH (10:12)
--- NOTE | 2017-09-30 10:21 | CP.PCM.DIS ---
Provider - Provider Date of Admission: 09/22/17 15:39 Attending physician: Ruby Briggs MD Primary care physician: Dr. Paulino Time Spent in preparation of Discharge (in minutes): 15 Hospital Course - Lab Results Lab Results: Most Recent Lab Values WBC 7.1 K/uL (4.8-10.8) 09/29/17 05:40 RBC 3.90 Mil/uL (3.80-5.20) 09/29/17 05:40 Hgb 11.9 g/dL (12.0-16.0) L 09/29/17 05:40 Hct 34.4 % (34.0-47.0) 09/29/17 05:40 MCV 88.2 fl (81.0-99.0) 09/29/17 05:40 MCH 30.6 pg (27.0-31.0) 09/29/17 05:40 MCHC 34.7 g/dL (33.0-37.0) 09/29/17 05:40 RDW 13.1 % (11.5-14.5) 09/29/17 05:40 Plt Count 298 K/uL (130-400) 09/29/17 05:40 Sodium 143 mmol/l (132-148) 09/29/17 05:40 Potassium 4.4 MMOL/L (3.6-5.0) 09/29/17 05:40 Chloride 106 mmol/L (98-107) 09/29/17 05:40 Carbon Dioxide 27 mmol/L (22-30) 09/29/17 05:40 Anion Gap 14 (10-20) 09/29/17 05:40 BUN 17 mg/dl (7-17) 09/29/17 05:40 Creatinine 0.7 mg/dl (0.7-1.2) 09/29/17 05:40 Est GFR ( Amer) > 60 09/29/17 05:40 Est GFR (Non-Af Amer) > 60 09/29/17 05:40 Random Glucose 82 mg/dL (65-105) 09/29/17 05:40 Calcium 8.9 mg/dL (8.4-10.2) 09/29/17 05:40 Total Bilirubin 0.4 mg/dl (0.2-1.3) 09/29/17 15:36 Direct Bilirubin 0.3 mg/ml (0.0-0.4) 09/29/17 15:36 AST 36 U/L (14-36) D 09/29/17 15:36 ALT 60 U/L (9-52) H D 09/29/17 15:36 Alkaline Phosphatase 73 U/L (38-126) 09/29/17 15:36 Total Protein 6.5 G/DL (6.3-8.2) 09/29/17 15:36 Albumin 3.5 g/dL (3.5-5.0) 09/29/17 15:36 Globulin 3.0 gm/dL (2.2-3.9) 09/29/17 15:36 Albumin/Globulin Ratio 1.2 (1.0-2.1) 09/29/17 15:36 - Hospital Course Hospital Course: Pt is a 62 yo f with PMH of HTN presented to ED due to abdominal pain, Nausea and vomiting. Pt was admitted acute pyelonephritis. Pt was treated medically with abx. On the floor Pt had low blood pressure, BP meds were stopped. Pt have improved, denies fever, chest pain, sob, abd pain, diarrhea, or any other symptoms. Vitals WNL. Medical team agree that pt is medically stable and clear to be discharged. F/U clinic with Dr. Paulino on 10/21/2017 at 1:20pm Discharge Exam - Head Exam Head Exam: ATRAUMATIC, NORMAL INSPECTION, NORMOCEPHALIC - Eye Exam Eye Exam: EOMI, Normal appearance, PERRL Pupil Exam: NORMAL ACCOMODATION, PERRL - Respiratory Exam Respiratory Exam: Clear to PA & Lateral, NORMAL BREATHING PATTERN, UNREMARKABLE - Cardiovascular Exam Cardiovascular Exam: REGULAR RHYTHM, +S1, +S2 - GI/Abdominal Exam GI & Abdominal Exam: Normal Bowel Sounds, Unremarkable. absent: Distended - Extremities Exam Extremities exam: normal inspection - Back Exam Back exam: NORMAL INSPECTION. absent: CVA tenderness (L), CVA tenderness (R) - Neurological Exam Neurological exam: Alert, Oriented x3 - Psychiatric Exam Psychiatric exam: Normal Affect, Normal Mood - Skin Skin Exam: Dry, Intact, Normal Color, Warm Discharge Plan - Follow Up Plan Condition: GOOD Disposition: HOME/ ROUTINE Instructions: Urinary Tract Infection in Women (DC), Urinary Tract Infection in Men (DC), Dysuria (GEN) Referrals: Christopher Paulino MD [Resident] - 10/21/17 1:20 am ()
== END 2017-09-30 14:20 | disposition home or self-care (01) | DRG 321 ==
LOC: H.TCU 15:39
PROVIDERS: ADMIT Family Medicine Geriatric Medicine; ATTEND Family Medicine Geriatric Medicine
PROC: 3E03329 Introduction of Other Anti-infective into Peripheral Vein, Percutaneous Approach (ICD-10-PCS; principal; 2017-09-22)
PROC: F07Z9FZ Gait Training/Functional Ambulation Treatment using Assistive, Adaptive, Supportive or Protective Equipment (ICD-10-PCS; 2017-09-22)
PROC: F08Z4FZ Home Management Treatment using Assistive, Adaptive, Supportive or Protective Equipment (ICD-10-PCS; 2017-09-22)
PROC: F07M6FZ Therapeutic Exercise Treatment of Musculoskeletal System - Whole Body using Assistive, Adaptive, Supportive or Protective Equipment (ICD-10-PCS; 2017-09-23)
DX: N10 Acute pyelonephritis (principal); I10 Essential (primary) hypertension; E78.00 Pure hypercholesterolemia, unspecified; K29.70 Gastritis, unspecified, without bleeding; K21.9 Gastro-esophageal reflux disease without esophagitis; M19.90 Unspecified osteoarthritis, unspecified site; Q82.5 Congenital non-neoplastic nevus; Z87.440 Personal history of urinary (tract) infections